=== PATIENT | female | born 2000 | race Caucasian/White ===

== ENCOUNTER 2021-11-30 22:21 | Inpatient (IN) | payer MEDICARE, MEDICAID, SELFPAY ==
--- NOTE | 2021-11-30 22:21 | LDADM ---
This patient, Che Davies, was admitted to Labor/Delivery/Recovery 107 on 11/30/21 at 22:21. Plans for labor, pain management and were discussed with patient. Patient/family oriented to hospital policies and general routines including ID bracelet, bed and alarms, visiting hours, pain management, procedures, bathroom and other care routines, personal items, smoking policy, room service/diet and guest tray routines, infant security routines, and visiting hours. Patient/Family are encouraged to report perceived risks to care and to ask questions if they do not understand what they are told or what they should do. See OBIX for further documentation.
--- OUTSIDE RECORDS SUMMARY | 2021-11-30 22:26 | XMS_ITS ---
:2000 Author Care Team Providers Name Role Phone Keeley Sheffield Primary Care Provider Unavailable Allergies Code Code System Name Reaction Severity Status Onset NKDA ? Medications Name Status Start Date Stop Date ? ? fluconazole 150 mg tablet Active ? Not av ailable hydrocortisone 2.5 % topical cream Active ? Not available ID NOW COVID-19 Test Kit Active ? Not belgica ilable nystatin 100,000 unit/gram topical Active ? Not available cream Completed ? 08/09/2021 triamcinolone acetonide 0.1 % topical Active ? Not available cream Problems Name Status Onset Date Source ? Active 08/18/2021 ? Procedures Date Name Performed by ? 08/18/2021 US, Obstetric, 2Nd or 3Rd Trimester [facility] [address] [place] [place] [address] (Work [address]) 09/12/2021 US, Obstetric, Follow-up [place] [address] [place] [address] (Work [address]) 11/25/2021 Non-stress Test [place] [address] [place] [address] (Work [address]) 11/25/2021 US, Obstetric, Biophysical Profile + [employer] carey
--- OUTSIDE RECORDS SUMMARY | 2021-11-30 22:27 | XMS_ITS | Encounter Summary ---
:2000 Author Reason for Visit None recorded. Assessment and Plan 1. screening ? US, obstetric, follow-up Discussion Note: None recorded.Patient educational handouts: No information available. Plan of Care Reminders Provider Appointments Induction Keeley T herese 12/01/2021 MD Yohannes 6:00PM Lab None ? ? recorded. Referral None ? ? recorded. Procedures None ? ? recorded. Surgeries None ? ? recorded. Imaging , [place] [facility], Follow-up 09/12/2021 Medications Name Start Date ? ? fluconazole 150 mg tablet ? hydrocortisone 2.5 % topical cream ? ID NOW COVID-19 Test Kit ? nystatin 100,000 unit/gram topical cream ? triamcinolone acetonide 0.1 % topical cream ? Medications Administered None recorded. Vitals None recorded. Results Lab Results None recorded. Allergies Code Code System Name Reaction Severity Onset NKDA ? ? ? Problems Name Status Onset Date Source ? Active 08/18/2021 ? Procedures Date Name Performed by ?
--- OUTSIDE RECORDS SUMMARY | 2021-11-30 22:27 | XMS_ITS | Encounter Summary ---
:2000 Author Reason for Visit OB visit Assessment and Plan Assessment Note Patient is ___weeks . Discu ssed plan. 1. Routine care Discussion Note: None recorded.Patient educational handouts: No information available. Plan of Care Reminders Provider Appointments Induction Keeley T herese 12/01/2021 MD Yohannes 6:00PM Lab None ? ? recorded. Referral None ? ? recorded. Procedures None ? ? recorded. Surgeries None ? ? recorded. Imaging None ? ? recorded. Medications Name Start Date ? ? fluconazole 150 mg tablet ? hydrocortisone 2.5 % topical cream ? ID NOW COVID-19 Test Kit ? nystatin 100,000 unit/gram topical cream ? triamcinolone acetonide 0.1 % topical cream ? Medications Administered None recorded. Vitals Height Weight BMI Blood Pressure 5 ft 4 in 198 lbs 34 kg/m2 121/74 mm[Hg] Results Lab Results None recorded. Allergies Code Code System Name Reaction Severity Onset NKDA ? ? ? Problems Name Status Onset Date Source ? Active
--- OUTSIDE RECORDS SUMMARY | 2021-11-30 22:27 | XMS_ITS | Encounter Summary ---
:2000 Author Reason for Visit OB visit Assessment and Plan 1. Routine care Discussion Note: None recorded.Patient educational handouts: No information available. Plan of Care Reminders Provider Appointments Induction Keeley Jocelyne here 12/01/2021 MD Yohannes 6:00PM Lab None ? [...] BMI Blood Pressure 5 ft 4 in 200 lbs 34.3 kg/m2 110/77 mm[Hg] Results Lab Results None recorded. Allergies Code Code System Name Reaction Severity Onset NKDA ? ? ? Problems Name Status Onset Date Source ? Active 08/18/2021 ? Procedures None recorded. Vaccine List None recorded. Social History Tobacco Smoking Status Ne
--- OUTSIDE RECORDS SUMMARY | 2021-11-30 22:27 | XMS_ITS | Encounter Summary ---
[...] BMI Blood Pressure 5 ft 4 in 183 lbs 31.4 kg/m2 114/72 mm[Hg] Results Lab Results None recorded. Allergies Code Code System Name Reaction Severity Onset NKDA ? ? ? Problems Name Status Onset Date Source ? Active 08/18/2021 ? Procedures Date Name Performed by ?
--- OUTSIDE RECORDS SUMMARY | 2021-11-30 22:27 | XMS_ITS | Encounter Summary ---
:2000 Author Reason for Visit None recorded. Assessment and Plan 1. Late entry into care ? US, obstetric, biophysical profile + non-stress test Discussion Note: None recorded.Patient educational handouts: No information available. Plan of Care Reminders Provider Appointments Induction Keeley T herese 12/01/2021 MD Yohannes 6:00PM Lab None recorded. ? ? Referral None recorded. ? ? Procedures None recorded. ? ? Surgeries None recorded. ? ? Imaging US, Obstetric, [facility] Biophysical Profile + 11/25/2021 Non-stress Test Medications Name Start Date ? ? fluconazole [...]
--- OUTSIDE RECORDS SUMMARY | 2021-11-30 22:27 | XMS_ITS | Encounter Summary ---
[...] BMI Blood Pressure 5 ft 4 in 192 lbs 33 kg/m2 115/72 mm[Hg] Results Lab Results None recorded. Allergies Code Code System Name Reaction Severity Onset NKDA ? ? ? Problems Name Status Onset Date Source ? Active 08/18/2021 ? Procedures Date Name Performed by ?
--- OUTSIDE RECORDS SUMMARY | 2021-11-30 22:27 | XMS_ITS | Encounter Summary ---
[...] BMI Blood Pressure 5 ft 4 in 187 lbs 32.1 kg/m2 120/79 mm[Hg] Results Lab Results None recorded. Allergies Code Code System Name Reaction Severity Onset NKDA ? ? ? Problems Name Status Onset Date Source ? Active 08/18/2021 ? Procedures Date Name Performed by ?
--- OUTSIDE RECORDS SUMMARY | 2021-11-30 22:27 | XMS_ITS | Encounter Summary ---
[...] BMI Blood Pressure 5 ft 4 in 193 lbs 33.1 kg/m2 118/77 mm[Hg] Results Lab Results None recorded. Allergies Code Code System Name Reaction Severity Onset NKDA ? ? ? Problems Name Status Onset Date Source ? Active
--- OUTSIDE RECORDS SUMMARY | 2021-11-30 22:27 | XMS_ITS | Encounter Summary ---
:2000 Author Reason for Visit None recorded. Assessment and Plan 1. Late entry into care ? non-stress test Discussion Note: None recorded.Patient educational handouts: No information available. Plan of Care Reminders Provider Appointments Induction Keeley Casanova here 12/01/2021 MD Yohannes 6:00PM Lab None ? ? recorded. Referral None ? ? recorded. Procedures None ? ? recorded. Surgeries None ? ? recorded. Imaging Non-stress [place] [facility] Test 11/29/2021 Medications Name Start Date ? ? fluconazole 150 mg tablet ? hydrocortisone 2.5 % topical cream ? ID NOW COVID-19 Test Kit ? nystatin 100,000 unit/gram topical cream ? triamcinolone acetonide 0.1 % topical cream ? Medications Administered None recorded. Vitals Weight Blood Pressure 202 lbs 113/77 mm[Hg] Results Lab Results None recorded. Allergies Code Code System Name Reaction Severity Onset NKDA ? ? ? Problems Name Status Onset Date Source ? Active 08/18/2021 ?
--- OUTSIDE RECORDS SUMMARY | 2021-11-30 22:27 | XMS_ITS | Encounter Summary ---
[...] BMI Blood Pressure 5 ft 4 in 199 lbs 34.2 kg/m2 121/81 mm[Hg] Results Lab Results None recorded. Allergies Code Code System Name Reaction Severity Onset NKDA ? ? ? Problems Name Status Onset Date Source ? Active
--- OUTSIDE RECORDS SUMMARY | 2021-11-30 22:27 | XMS_ITS | Encounter Summary ---
:2000 Author Reason for Visit None recorded. Assessment and Plan 1. with uncertain date s ? non-stress test Discussion Note: None recorded.Patient educational handouts: No information available. Plan of Care Reminders Provider Appointments Induction Keeley Casanova here 12/01/2021 MD Yohannes 6:00PM Lab None ? ? recorded. Referral None ? ? recorded. Procedures None ? ? recorded. Surgeries None ? ? recorded. Imaging Non-stress [facility] Test 11/25/2021 Medications Name Start Date ? ? fluconazole 150 mg tablet ? hydrocortisone 2.5 % topical cream ? ID NOW COVID-19 Test Kit ? nystatin 100,000 unit/gram topical cream ? triamcinolone acetonide 0.1 % topical cream ? Medications Administered None recorded. Vitals Weight Blood Pressure 200 lbs 130/82 mm[Hg] Results Lab Results None recorded. Allergies Code Code System Name Reaction Severity Onset NKDA ? ? ? Problems Name Status Onset Date Source ? Active 08/18/2021 ?
[2021-11-30 22:56] VITALS: TEMP 36.9
[2021-11-30 23:19] VITALS: BMI 34.8
--- NOTE | 2021-11-30 23:38 | WPDOBADMIT ---
Obstetrics - Admit Note Admission Note: record reviewed. No pertinent additions to the history and/or any subsequent changes in the physical findings that are not consistent with the expected course of the were found. Patient arrived in labor. , membranes intact. Anticipate vaginal delivery. Additions to the history and/or subsequent changes in the physical findings follow. None.
[2021-11-30] MEDS: LACTATED RINGERS 1,000 ML 125 ML IV CONT (23:44)
[2021-11-30 23:46] LABS: Basophils Percent Auto 0.2 % (0.2-1.2); Eosinophils Absolute Auto 0.1 K/mm3 (0-0.3); Eosinophils Percent Auto 0.5 % (0-4.4); Hematocrit 31.2 % (37.0-47.0); Hemoglobin 10.4 g/dL (12.0-15.0); Immature Granulocyte Absolute 0.06 K/mm3 (0.00-0.031); Immature Granulocyte Percent A 0.5 % (0-0.5); Lymphocytes Absolute Auto 2.24 K/mm3 (0.9-3.2); Lymphocytes Percent Auto 17.3 % (18.3-44.2); Mean Corpuscular HGB Conc 33.3 g/dl (32-36); Mean Corpuscular Hemoglobin 30.6 pg (26-34); Mean Corpuscular Volume 91.8 fl (80-100); Mean Platelet Volume 9.5 fl (7.4-10.4); Monocytes Absolute Auto 1.1 K/mm3 (0.1-0.6); Monocytes Percent Auto 8.4 % (2.6-8.5); Neutrophils Absolute Auto 9.4 K/mm3 (1.3-6.7); Neutrophils Percent Auto 73.1 % (45.5-73.1); Platelet Count Result 335 k/mm3 (150-375); Red Cell Distribution Width 13.8 % (11.5-14.5); White Blood Count 12.9 K/mm3 (4.5-10.0)
[2021-11-30 23:51] VITALS: BP 144/80; PULSE 97
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
[2021-12-01] VITALS (96 sets, daily range): BP systolic 83–156; BP diastolic 45–93; PULSE 64–115; RESP 16–20; TEMP 36.3–37.3; O2SAT 90–100
--- NOTE | 2021-12-01 00:05 | PC.NURSE ---
Eber Alexis CNM in department. Updated on maternal assessment. strip reviewed. Order change to perform vitals only when patient is awake overnight and then continue with Q4H in AM.
[2021-12-01] MEDS: ONDANSETRON INJ 4 MG/2 ML VIAL IV PUSH (00:24)
[2021-12-01] MEDS: LACTATED RINGERS 1,000 ML 125 ML IV CONT (00:26)
--- NOTE | 2021-12-01 00:27 | P.PNAN_ITS ---
Anes - Eval Pre Procedure Procedure: labor epidural Date/Time: 12/01/21 00:27 Surgeon: azeb Preop Diagnosis: pain during labor Pre Op Diagnosis: Contractions Patient Data Age: 21 Gender: F Height: 1.63 m Weight: 92 kg Last Vital Signs Pulse 94 12/01/21 00:15 BP 124/71 12/01/21 00:15 Allergies Allergy/AdvReac Type Severity Reaction Status Date / Time No Known Allergies Allergy Verified 11/30/21 23:41 Home Medications Medication Instructions Recorded Confirmed Type No Home Medications 10/29/21 11/30/21 History Laboratory Tests 11/30/21 11/30/21 23:15 23:15 WBC 12.9 K/mm3 H K/mm3 (4.5-10.0) RBC 3.40 M/mm3 L M/mm3 (4.2-5.4) Hgb 10.4 g/dL L g/dL (12.0-15.0) Hct 31.2 % L % (37.0-47.0) MCV 91.8 fl fl (80-100) MCH 30.6 pg pg (26-34) MCHC 33.3 g/dl g/dl (32-36) RDW 13.8 % % (11.5-14.5) Plt Count 335 k/mm3 k/mm3 (150-375) MPV 9.5 fl fl (7.4-10.4) Immature Gran % (Auto) 0.5 % % (0-0.5) Neut % (Auto) 73.1 % % (45.5-73.1) Lymph % (Auto) 17.3 % L % (18.3-44.2) [place] % (Auto) 8.4 % % (2.6-8.5) Eos % (Auto) 0.5 % % (0-4.4) Baso % (Auto) 0.2 % % (0.2-1.2) Lymph # (Auto) 2.24 K/mm3 K/mm3 (0.9-3.2) [place] # (Auto) 1.1 K/mm3 H K/mm3 (0.1-0.6) Eos # (Auto) 0.1 K/mm3 K/mm3 (0-0.3) Baso # (Auto) 0.0 K/mm3 K/mm3 (0.0-0.1) Abs Immat Gran (auto) 0.06 K/mm3 H K/mm3 (0.00-0.031) Absolute Neuts (auto) 9.4 K/mm3 H K/mm3 (1.3-6.7) Absolute Nucleated RBC 0.0 K/mm3 K/mm3 (0.0-0.012) Nucleated RBC % 0.0 % % (0.0-0.2) RPR Pending Patient hx anesthesia problems: none Family hx anesthesia problems: none Results Review: All pre-operative results and documents have been reviewed as part of the pre-operative evaluation. [facility] Past Medical History Medical History (Updated 12/01/21 @ 00:28 by Berenice Coppola CRNA) Obesity (BMI 30-39.9) Family History Family History (Updated 10/29/21 @ 11:55 by Mia Acuna RN) Other Breast cancer Social History Social History Smoking status: Former smoker Substance use: never Gender identity (if verbalized by the patient): Female Spiritual care concerns: No Exam Day of Procedure 12/01/21 00:27
[2021-12-01 03:10] LABS: Alanine Aminotransferase 16 U/L (4-35); Albumin Level 3.1 g/dL (3.5-5.1); Alkaline Phosphatase 205 U/L (38-126); Anion Gap 7 mmol/L (8-16); Aspartate Amino Transferase 23 U/L (14-36); Bilirubin,Total < 0.1 mg/dL (0.2-1.3); Blood Urea Nitrogen 6 mg/dL (7-17); Calcium 8.4 mg/dL (8.4-10.2); Carbon Dioxide 23 mmol/L (22-30); Chloride 106 mmol/L (98-107); Estimated CRCL calculation 160 ml/min; Estimated Glomerular Filt Rate > 60; Glucose 113 mg/dL (65-110); Potassium 3.8 mmol/L (3.4-5.0); Sodium 136 mmol/L (137-145); Uric Acid 4.2 mg/dL (2.5-7.5)
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
--- NOTE | 2021-12-01 08:03 | PM.OBPRVD ---
OB - Delivery Note Procedure Delivery date: 12/01/21 Procedure: Vaginal delivery Induction method: None Delivery augmentation: Rupture of Membranes and Pitocin Delivery monitor: External FHT and External Uterine Route of delivery: Laceration Description: Labial (right) Delivery repair: other (No suture needed) Specimen: Yes Quantitative Blood Loss (ml): 150 Anesthesia type: Epidural Disposition: Floor [place] Baby Date of : 12/01/21 Time of : 07:49 Weeks of gestation at delivery: 41 Infant gender: Female Weight (pounds): 7 Weight (ounces): 10 presentation: vertex position: Left Occiput Anterior Placenta delivery description: Spontaneous Cord Vessel Description: 3 Vessels score one minute: 8 score five minutes: 9 Narrative: Mom and baby stable. baby to warmer
[2021-12-01] MEDS: IBUPROFEN 600 MG TABLET PO ×3 (09:46→22:35)
[2021-12-01] MEDS: BENZOCAINE 20% AER SPR (*SP) 56 GM CAN 1 SPRAY TOPICAL (10:32)
[2021-12-01] MEDS: WITCH HAZEL 40 PADS 1 PAD TOPICAL (10:32)
--- NOTE | 2021-12-01 11:00 | PC.NURSE ---
Patient transferred to post room #284 via wheelchair. Baby present. Oriented to unit, room, information board, rooming in, admission packet and security measures. Patient verbalizes understanding. Pt states she does not have any family or support here with her, she does have a tree specialist that helped with labor and delivery and she will be here later
--- NOTE | 2021-12-01 13:59 | PC.NURSE ---
Primary RN reported that she assisted mother () with infant to the breast at 1100 and baby latched well and mother did not complain of pain.
[2021-12-01 14:54] LABS: Rapid Plasma Reagin Non-Reactive (NonReactive)
--- NOTE | 2021-12-01 15:38 | PC.NURSE ---
[id number] Introductions were made, then consulted with patient to assess needs related to . Mother led the conversation with her experience feeding her so far. Mother works well with her with encouragement and education. Encouraged understanding of the benefits of skin to skin (unwrapping and placing vertically on her chest), responsive feeding and how to watch for early feeding signs, frequency of feeding on demand about every 8-12 times in 24 hours (every 2-3 hours), milk production, duration of feeding, signs of adequate intake/output and how to record on the feeding sheet. Reviewed positioning and ear, shoulder, hip alignment, supporting the breast, asymmetrical latch (off-center), and leading with the chin with a big open side gape. Infant latched optimally to the right breast in football position. Education given to mother of how to visualize suck/swallow ratios and drinking at the breast. was [able/unable] to maintain latch without discomfort to mother. Nipple care reviewed with optimal latch and good positioning. Reminding mother of comfort measures of healing with a warm and wet washcloth to rinse breast, then leave open to air-dry as needed. Reviewed good handwashing when or touching the breast/nipples to prevent infection. Resources used to facilitate learning were used with the visual handouts/mom and baby guide. Reinforcement needed for education on mother working with her with responsive feedings, stimulating with skin to skin, hand expressed colostrum, touch, talking to infant to encourage if it has been 2 -3 hours since the start of the last , to call if does not latch or there is discomfort with . Reported to the primary RN.
--- NOTE | 2021-12-01 19:00 | PC.NURSE ---
Stated, Can you get my permission for visitors before allowing anyone to come in my room. I did not know he was coming to see me. Gentleman present at bedside. Explained I would have security notify the nurses station first before allowing visitors to come up. Security notified. Sign placed on door to check with nurses station before entering.
[2021-12-01] MEDS: ACETAMINOPHEN 325 MG TABLET 650 MG PO (22:35)
[2021-12-02 03:20] VITALS: BP 98/56; PULSE 77; RESP 18; TEMP 36.6
[2021-12-02 04:18] LABS: Hematocrit 26.5 % (37.0-47.0); Hemoglobin 8.5 g/dL (12.0-15.0)
--- NOTE | 2021-12-02 07:39 | PM.OBPNVD ---
OB - PN: Subj Subjective Date/time seen: 12/02/21 07:39 RN concerned patient not picking up on personal and infant needs. family services assistant notified. Patient comments: no complaints [place] baby status: doing well OB - PN: Obj Data Labs CBC & Chem 7: 12/02/21 03:26 12/01/21 02:29 Labs: Laboratory Results - last 24 hr 11/30/21 12/02/21 23:15 03:26 Hgb 8.5 L Hct 26.5 L RPR Non-reactive OB - PN A/P Plan day: 1 Plan: routine care Time Spent With Patient Time: Total time spent is greater than 50% in coordination of care (as documented) at patient's floor/unit and/or counseling patient: Review of Systems Review of Systems: All systems reviewed & are unremarkable except as noted in HPI and below Exam Const: General: healthy appearing, comfortable and other (Delayed response)
[2021-12-02 08:20] VITALS: BP 110/67; PULSE 88; RESP 18; TEMP 36.1; O2SAT 98
[2021-12-02] MEDS: DOCUSATE SODIUM 100 MG CAPSULE PO ×2 (08:27→15:33)
[2021-12-02] MEDS: IBUPROFEN 600 MG TABLET PO ×2 (08:27→15:32)
[2021-12-02] MEDS: POLYSACCHARIDE IRON COMPLEX 150 MG CAPSULE PO ×2 (08:27→15:33)
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
--- NOTE | 2021-12-02 12:05 | PC.NURSE ---
DCFS case managers, Chris Arita, here to talk with patient.
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
--- NOTE | 2021-12-02 14:47 | WPDANLDPN2 ---
Anes-Prog Note L&D Date/Time: 12/02/21 14:47 Comfortable throughout: labor and delivery Neuraxial method: epidural Epidural/Spinal procedure site: clean & non-tender Neuro status: Neuro function grossly intact. Cardiovascular status: normal Respiratory status: normal Airway patency: baseline Mental status: baseline Post-Op hydration status: normal Vital Signs: Last Vital Signs Temp 36.1 C L 12/02/21 08:20 Pulse 88 12/02/21 08:20 Resp 18 12/02/21 08:20 BP 110/67 12/02/21 08:20 Pulse Ox 98 12/02/21 08:20 Pain score (VAS): 0 I/O: Intake & Output 12/01/21 12/02/21 12/02/21 23:59 07:59 15:59 Intake Total 240 500 Balance 240 500 Post-procedural complaints: none Patient feedback: Patient satisfied with anesthetic care.
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
[2021-12-02 19:00] VITALS: BP 120/76; PULSE 84; RESP 18; TEMP 36.8
[2021-12-03] MEDS: ACETAMINOPHEN 325 MG TABLET 650 MG PO (04:40)
[2021-12-03] MEDS: IBUPROFEN 600 MG TABLET PO (04:40)
--- NOTE | 2021-12-03 07:47 | PM.OBPNVD ---
OB - PN: Subj Subjective Date/time seen: 12/03/21 07:47 Patient comments: no complaints and pain well controlled baby status: doing well [place] feeding status: breast and bottle feeding Narrative: Pt is upset that she may not take baby home with her. Support given. Medically she is feeling fine. OB - PN: Obj Data Labs CBC & Chem 7: 12/02/21 03:26 12/01/21 02:29 OB - PN A/P Plan day: 2 Plan: routine care and discharge home Comments: high risk for pp depression- FU 1-2 weeks DC instructions given Time Spent With Patient Time: Total time spent is greater than 50% in coordination of care (as documented) at patient's floor/unit and/or counseling patient: Time with patient: less than 15 minutes Exam Narrative: NAD abdomen soft, nontender, fundus firm below the umbilicus Extremities nontender, 1+ edema
--- NOTE | 2021-12-03 07:51 | PM.OBDSVD ---
DS: Admitting Diagnosis Discharge Date 12/03/21 Admitting Diagnosis term IUP, labor DS: Discharge Diagnosis Discharge Diagnosis (1) , delivered: Code(s): O80 - Encounter for full-term uncomplicated delivery Status: Acute (2) Schizophrenia: Code(s): F20.9 - Schizophrenia, unspecified Status: Acute OB - DS: Summary Hospital Course Hospital Course: Che was admitted in labor and had an uncomplicated vaginal delivery. She had an uncomplicated course with the exception of DCFS determining that she could not care for her baby. OB Procedures : Ultrasound OB Procedures Intrapartum: Spontaneous Vag Delivery OB Procedures: : None Peripartum Data Infant Delivery Method: Natural Vaginal complications: none Status at Discharge Functional status at discharge: independent ambulation Time Spent with Patient Time attestation: Total time spent providing and/or coordinating discharge services: Exam Narrative: NAD abdomen soft, appropriately tender Ext non tender, 1+ edema DS: Data Data Completed and Pending Pending studies at discharge: Pending at discharge 12/01/21 07:52 Surgical [PTH] Routine Discharge Plan Discharge Attending physician on discharge: Keeley Sheffield Discharging Clinician: Keeley Sheffield Anticipated Discharge Date/Time: 12/03/21 16:00 Patient Disposition: Home, Self-Care Activity: pelvic rest Diet: regular Discharge Instructions: ibuprofen 600mg every 6 hours as needed over the counter Slow Fe daily Patient Instructions: Antibiotic Form Stand Alone Forms: General Discharge Information Follow-up/Referrals: Keeley Sheffield MD [Physician] - 2 Weeks Discharge Medications: No Action No Home Medications RF: 0 Date of admission: 11/30/21 22:21 Primary Care Provider: PHYSICIAN,WIRELESS NETWORK ENGINEER Admitting Provider: Keeley Sheffield Attending physician on admission: Keeley Sheffield Condition: Stable
[2021-12-03 08:19] VITALS: BP 113/74; PULSE 74; RESP 16; TEMP 36.3; O2SAT 98
[2021-12-03] MEDS: POLYSACCHARIDE IRON COMPLEX 150 MG CAPSULE PO (08:20)
[2021-12-03] MEDS: DOCUSATE SODIUM 100 MG CAPSULE PO (08:21)
--- NOTE | 2021-12-03 14:00 | PC.NURSE ---
Patient received information on viewing the discharge video Mother & Baby Care, The First Two Weeks online. Patient was given the opportunity and encouraged to ask questions. Patient verbalized understanding of information shared and has been given the mother/baby guide for home reference.
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
== END 2021-12-03 15:10 | disposition home or self-care (01) | DRG 807 ==
LOC: ANHLDR 22:32 → ANHOB2 12-01 12:19
PROVIDERS: Advanced Practice Midwife; Admitting Provider Obstetrics & Gynecology; Visit Provider Obstetrics & Gynecology
DX: O77.0 Labor and delivery complicated by meconium in amniotic fluid (principal); Z37.0 Single live birth; Z3A.41 41 weeks gestation of pregnancy; O36.8330 Maternal care for abnormalities of the fetal heart rate or rhythm, third trimester, not applicable or unspecified; O99.344 Other mental disorders complicating childbirth; F20.9 Schizophrenia, unspecified; O70.0 First degree perineal laceration during delivery
CPT/HCPCS: 36415; 80053; 84550; 85014; 85018; 85025; 86592; 86850; 86900; 86901; 88307; A9270; J2405; J2795; J7120

== ENCOUNTER 2024-12-31 10:45 | Outpatient (CLI) | payer MEDICARE, MEDICAID, SELFPAY ==
--- NOTE | ~2024-12-31 | US_ITS ---
Renal-Bladder ultrasound Clinical History: Chronic kidney disease Technique: Real-time sonographic imaging of the kidneys and urinary bladder was performed. Findings: The right kidney measures 11.3 cm in length and the left kidney measures 12.2 cm. There is no hydronephrosis or renal calculus identified. Renal cortical echogenicity is within normal limits. No renal mass lesion is identified. The urinary bladder is moderately distended at the time of this exam. No intraluminal echoes are iden tified. No abnormal wall thickening is seen. Impression: Unremarkable ultrasound of the kidneys and urinary bladder. Reviewed, dictated and finalized at location . Impression: Unremarkable ultrasound of the kidneys and urinary bladder.
== END 2024-12-31 10:46 | disposition home or self-care (01) ==
LOC: MICIMG 10:47
PROVIDERS: PCP Internal Medicine; Visit Provider Specialist
DX: N18.30 Chronic kidney disease, stage 3 unspecified (principal)
CPT/HCPCS: 76775

== ENCOUNTER 2025-06-10 09:52 | Emergency (ER) | payer MEDICARE, MEDICAID, SELFPAY ==
--- OUTSIDE RECORDS SUMMARY | 2024-12-19 09:00 | XMS_ITS ---
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 Problem Elevation of levels of liver transaminase levels (R74.01) Active confirmed Problem Psychotic disorder (46927473) 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) Active confirmed Problem Obesity (752755821) Obesity, unspecified (E66.9) Active confirmed Encounters Encounter Location Date Provider Diagnosis [place] [facility] [address] [facility] [address] [place] [address] 12/19/2024 Hill Singh Chronic kidney disease, stage 1 N18.1 ; Atrophy of kidney (terminal) N26.1 ; Elevation of levels of liver transaminase levels R74.01 ; Unspecified psychosis not due to a substance or known physiological condition F29 and Obesity, unspecified E66.9 Assessments Encounter Date Diagnosis (ICD Code) Assessment Notes Treatment Notes Treatment Clinical Notes Section Notes 12/19/2024 Chronic kidney disease, stage 1 (ICD-10 - N18.1) 12/19/2024 Atrophy of kidney (terminal) (ICD-10 - N26.1) 12/19/2024 Elevation of levels of liver transaminase levels (ICD-10 - R74.01) 12/19/2024 Unspecified psychosis not due to a substance or known physiological condition (ICD-10 - F29) 12/19/2024 Obesity, unspecified (ICD-10 - E66.9) Plan Of Treatment Next Appt Details Provider Name:Hill Francisco , 06/17/2025 04:00:00 PM, [address] [facility] [address], [place], [address], Progress Notes * Nicanor DAVIESOB:2000 ([age] yo F)Acc No.[id number]:12/19/2024 Progress Notes Patient: Che SPAIN Provider: Scooby GALLAGHER MD, F.A.C.P, F.A.S.N. :2000 A ge:24 Y S ex:Female Date:12/19/2024 Address:[address] [place] [address] Subjective: * Chief Complaints: * * Medical History: Objective: * Vitals: Assessment: * Assessment: 1. C hronic kidney disease, stage 1 - N18.1 (Primary) 2 . A trophy of kidney (terminal) - N26.1 3 . E levation of levels of liver transaminase levels - R74.01 4 . U nspecified psychosis not due to a substance or known physiological condition - F29 5 . O besity, unspecified - E66.9 Plan: * Treatment: * Billing Information: * Visit Code: 76952 Office Visit, New Pt., Level 5. * Procedure Codes: * Electronic signature of Judith Singh MD on 06/10/2025 at 10:51 AM CLINICAL RESEARCH ADMINISTRATOR Sign off status: Pending * Provider: Scooby GALLAGHER MD, F.A.C.P, F.A.S.N. Date: 0 12/19/2024 Generated for Printing/Faxing/eTransmitting on: 1 08/10/2024 10:51 AM CLINICAL RESEARCH ADMINISTRATOR
--- OUTSIDE RECORDS SUMMARY | 2025-01-07 09:30 | XMS_ITS ---
Author Organization [facility] Office Address [address] [facility] [address] [facility] [address] [place] [address] Care Team Providers Care Bulk Driver Name Role Phone Hill Singh Unavailable [phone] Problems Problem Type SNOMED Code ICD Code Onset Dates Problem Status W/U Status Risk Notes Problem Fatty liver (300187501) Fatty (change of) liver, not elsewhere classified (K76.0) Active confirmed Encounters Encounter Location Date Provider Diagnosis [place] [facility] [address] [facility] [address] [place] [address] 01/07/2025 Hill Singh Chronic kidney disease, stage 1 N18.1 ; Atrophy of kidney (terminal) N26.1 ; Elevation of levels of liver transaminase levels R74.01 ; Unspecified psychosis not due to a substance or known physiological condition F29 ; Obesity, unspecified E66.9 ; Fatty (change of) liver, not elsewhere classified K76.0 and Edema, unspecified R60.9 Assessments Encounter Date Diagnosis (ICD Code) Assessment Notes Treatment Notes Treatment Clinical Notes Section Notes 01/07/2025 Chronic kidney disease, stage 1 (ICD-10 - N18.1) 01/07/2025 Atrophy of kidney (terminal) (ICD-10 - N26.1) 01/07/2025 Elevation of levels of liver transaminase levels (ICD-10 - R74.01) 01/07/2025 Unspecified psychosis not due to a substance or known physiological condition (ICD-10 - F29) 01/07/2025 Obesity, unspecified (ICD-10 - E66.9) 01/07/2025 Fatty (change of) liver, not elsewhere classified (ICD-10 - K76.0) 01/07/2025 Edema, unspecified (ICD-10 - R60.9) Plan Of Treatment Next Appt Details Provider Name:Hill Singh , 06/17/2025 04:00:00 PM, [address] [facility], [facility] [address], [place], [address], Progress Notes * Nicanor DAVIESOB:2000 ([age] yo F)Acc No.[id number]:01/07/2025 Progress Notes Patient: Che SPAIN Provider: Scooby GALLAGHER MD, F.Iraj.Bradnon.P, F.A.S.N. :2000 A ge:24 Y S ex:Female Date:01/07/2025 Address:[address] [place] [address], [place] [address] Subjective: * Chief Complaints: * * Medical [...] 5 . O besity, unspecified - E66.9 6 . F atty (change of) liver, not elsewhere classified - K76.0 7 . E irma, unspecified - R60.9 Plan: * Treatment: * Billing Information: * Visit Code: 97617 Office Visit, Est Pt., Level 4. * Procedure Codes: * Electronic signature of Judith Singh MD on 06/10/2025 at 10:51 AM REPLANTING MACHINE OPERATOR Sign off status: Pending * Provider: Scooby GALLAGHER MD, Mary Ellen.Iraj.C.P, F.A.S.N. Date: 0 01/07/2025 Generated for Printing/Faxing/eTransmitting on: 08/10/2024 10:51 AM REPLANTING MACHINE OPERATOR
--- OUTSIDE RECORDS SUMMARY | 2025-03-18 10:00 | XMS_ITS ---
Author Organization [facility] Office Address [address] [facility] [address] [facility] [address] [place] [address] Care Team Providers Care Baby Formula Worker Name Role Phone FranciscoMarco AntonioHill Unavailable [phone] Encounters Encounter Location Date Provider Diagnosis [place] [facility] [address] [facility] [address] [place] [address] 03/18/2025 Hill Singh Chronic kidney disease, stage 1 N18.1 ; Atrophy of kidney (terminal) N26.1 ; Elevation of levels of liver transaminase levels R74.01 ; Unspecified psychosis not due to a substance or known physiological condition F29 ; Obesity, unspecified E66.9 and Fatty (change of) liver, not elsewhere classified K76.0 Assessments Encounter Date Diagnosis (ICD Code) Assessment Notes Treatment Notes Treatment Clinical Notes Section Notes 03/18/2025 Chronic kidney disease, stage 1 (ICD-10 - N18.1) 03/18/2025 Atrophy of kidney (terminal) (ICD-10 - N26.1) 03/18/2025 Elevation of levels of liver transaminase levels (ICD-10 - R74.01) 03/18/2025 Unspecified psychosis not due to a substance or known physiological condition (ICD-10 - F29) 03/18/2025 Obesity, unspecified (ICD-10 - E66.9) 03/18/2025 Fatty (change of) liver, not elsewhere classified (ICD-10 - K76.0) Plan Of Treatment Next Appt Details Provider Name:Hill Singh , 06/17/2025 04:00:00 PM, [address] [facility], [facility] [address], [place], [address], Progress Notes * Nicanor DAVIESOB:2000 ([age] yo F)Acc No.[id number]:03/18/2025 Progress Notes Patient: Che SPAIN Provider: Scooby GALLAGHER MD, F.Iraj.C.P, F.A.S.N. :2000 A ge:24 Y S ex:Female Date:03/18/2025 Address:[address] [place] [address] Subjective: * Chief Complaints: Objective: Assessment: * Assessment: 1. C hronic kidney [...] of) liver, not elsewhere classified - K76.0 Plan: * Billing Information: * Visit Code: 45083 Office Visit, Est Pt., Level 4. * Procedure Codes: * Electronic signature of Judith Singh MD on 06/10/2025 at 10:52 AM GALLEY STRIPPER Sign off status: Pending * Provider: Scooby GALLAGHER MD, F.Iraj.C.P, F.A.S.N. Date: 0 03/18/2025 Generated for Printing/Faxing/eTransmitting on: 1 08/10/2024 10:52 AM GALLEY STRIPPER
[2025-06-10 10:03] VITALS: BP 148/84; PULSE 95; RESP 18; TEMP 36.8; O2SAT 99
--- OUTSIDE RECORDS SUMMARY | 2025-06-10 10:51 | XMS_ITS | Clinical Summary ---
Author Organization [facility] Address [address] [place] [address] Care Team Providers Care Wax Pumper Name Role Phone Hill Singh MD Unavailable [phone] Christian Sexton MD Unavailable [phone] Rahel Ashby MD Primary Care Provide r Allergies No known active allergies Medications ARIPiprazole (ABILIFY MAINTENA) 300 mg IM injection Inject 300 mg into the muscle as instructed once Active FLUoxetine (PROzac) 20 mg capsule Take 1 capsule (20 mg total) by mouth every morning 08/11/19 25 Active hydrOXYzine (VISTARIL) 25 mg capsule Take 1 capsule (25 mg total) by mouth 2 (two) times a day as needed 09/05/19 25 Active Rybelsus 3 mg tablet TAKE 1 TABLET BY MOUTH DAILY ON AN EMPTY STOMACH WITH UP TO 4 OZ OF WATER 30 MINUTES PRIOR TO EATING. DO NOT TAKE WITH OTHER LIQUIDS Active lurasidone (LATUDA) 40 mg tablet Active ergocalciferol (VITAMIN D) 50,000 unit capsule Active calcitRIOL (ROCALTROL) 0.25 mcg capsule Active delmi ypwbqo-Fg-ddqI rangpeel-tea (Apple Cider Vinegar Plus) [phone] zw-uyf-fd-mg tablet Take by oral route. Active multivitamin-C c-qoew-qyhsapd s tablet Take by oral route. Active medroxyPROGEST ERone (PROVERA) 10 mg tabletIndicati ons:Abnormal Uterine Bleeding,bleed ing on depo provera Take 1 tablet (10 mg total) by mouth daily for 10 days 10 tablet 02/06/20 25 Active phenazopyridin e (PYRIDIUM) 200 mg tablet Take 1 tablet (200 mg total) by mouth 3 (three) times a day as needed for bladder spasms for up to 5 days 10 tablet 05/25/20 25 025 Discontinued phenazopyridin e (PYRIDIUM) 200 mg tablet Take 1 tablet (200 mg total) by mouth 3 (three) times a day as needed for bladder spasms for up to 5 days 10 tablet 05/25/20 25 025 Active Problems Problem Noted Date Diagnosed Date Bladder spasm 05/25/2025 Menstrual migraine 11/03/2024 Overview (11/03/2024): Denies aura. 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 She was found in the hospital hallway in the nude seeing her baby was trying to kill her. Smoker 03/17/2024 BMI 32.0-32.9,adult 03/17/2024 Encounters Date Type Department Care Team Description 05/25/2025 2:00 PM CDT Office Visit [facility] at [address] Medical Office Building [address] [place] [phone] Dana Reyes MD Bladder spasm (Primary Dx); Secondary amenorrhea 04/23/2025 Orders Only [facility] at [address], [address] [facility] Medical Office Building [address] [place] [id number] Dana Reyes MD 04/21/2025 4:06 PM CDT - 04/21/2025 11:59 PM CDT Hospital Encounter [address] [address] UTI symptoms Discharge Disposition: Discharge to home or self care 04/21/2025 10:00 AM CDT Clinical Support [facility] at [address], [address] Medical Office Building [address] [place] [address] UTI symptoms (Primary Dx) 04/09/2025 10:00 AM CDT Clinical Support [facility] at [address], [address] Medical Office Building [address] [place] [address] Surveillance for Depo-Provera contraception (Primary Dx) 03/31/2025 11:12 AM CDT - 03/31/2025 11:59 PM CDT Hospital Encounter [address] [address] Screening for STD (sexually transmitted disease); Vaginal irritation Discharge Disposition: Discharge to home or self care 03/31/2025 10:45 AM CDT Clinical Support [facility] at [address], [address] Medical Office Building [address] [place] [address] UTI symptoms (Primary Dx); Vaginal irritation; Screening for STD (sexually transmitted disease) 03/31/2025 Orders Only [facility] at [address], [address] Medical Office Building [address] [place] [address] Dana Reyes MD UTI symptoms (Primary Dx) 03/31/2025 Telephone [facility] at [address], [address] Medical Office Building [address] [place] [address] Dana Reyes MD from Last 3 Months Medical History Medical History Date Comments Depression Family History Medical History Relation Name Comments Schizophrenia Cousin OCD Mother Scoliosis Mother Schizophrenia Mother's Sister Relation Name Status Comments Cousin Alive Mother Mother's Sister Alive Social History Tobacco Use Types Packs/Day Years Used Date Smoking Tobacco: Some Days Cigarettes AUDIT-C Answer Date Recorded Q1: How often do you have a drink containing alc ohol? Monthly or less 05/02/2024 Q2: How many drinks containi ng alcohol do you have on a typical day when you are drinking? 1 or 2 05/02/2024 Q3: How often do you have si x or more drinks on one occasion? Never 05/02/2024 Comments No Sex and Gender Information Value Date Recorded Sex Assigned at Not on file Legal Sex Female 9:38 AM [employer] Gender Identity Not on file Sexual Orientation Not on file Obstetrics History Para Term AB IAB SAB Ectopic Multiple Livin g Live Births 1 1 1 1 1 Date Outcome GA Total Labor Labor/2nd/3rd Weight Sex Type Anes PTL Bebe A1 A5 Name Clin 2021 Term 40w0d F Vag-Sp ont Last Filed Vital Signs Vital Sign Reading Time Taken Comments Blood Pressure 122/90 05/25/2025 1:55 PM CDT Pulse - - Temperature - - Respiratory Rate 20 11/03/2024 3:04 PM CDT Oxygen Saturation - - Inhaled Oxygen Concentration - - Weight 98.5 kg (217 lb 3.2 oz) 05/25/2025 1:55 P M CDT Height 162.6 cm (5' 4.02) 11/03/2024 3:04 PM CD T Body Mass Index 37.26 11/03/2024 3:04 PM CDT Plan of Treatment Health Maintenance Due Date Last Done Comments Depression Screening 2000 Pneumococcal vaccine <65 (1 of 2 - PCV) 2017 Influenza Vaccine (#1) 2025 , 05/29/2023, 05/19/2022 HPV Vaccines (1 - 3-dose SCD M series) 2025 Cervical Cancer Screening 11/03/2025 11/03/2024 Regular Well Visit/Exam 18-64 11/03/2025 11/03/2024 DTaP/Tdap/Td Vaccine (9 - Td or Tdap) 05/19/2032 05/19/2022, 09/28/2021, 04/05/2010, Additional history exists Hepatitis B Screening Completed 02/10/1999 , 2000, 1998 Varicella Vaccines Completed 04/05/2010, 08/29/1999 Hepatitis C Screening Completed 11/03/2024, 024 Procedures Procedure Name Priority Date/Time Associated Diagnosis Comments POCT HCG, URINE Routine 05/26/2025 8:00 AM CDT Secondary amenorrhea POCT URINALYSIS DIPSTICK Routine 05/25/2025 2:30 PM CDT Bladder spasm URINE CULTURE Routine 04/21/2025 4:06 PM CDT UTI symptoms POCT URINALYSIS DIPSTICK Routine 04/21/2025 11:03 AM CDT UTI symptoms POCT URINALYSIS DIPSTICK Routine 03/31/2025 10:52 AM CDT UTI symptoms N. GONORRHOEAE/C. TRACHOMATIS AMPLIFICATION Routine 03/31/2025 8:00 AM CDT Vaginal irritation TRICHOMONAS VAGINALIS PCR Routine 03/31/2025 8:00 AM CDT Screening for STD (sexually transmitted disease) HEPATITIS C ANTIBODY Routine 11/03/2024 4:06 PM CDT Encounter for screening for infections with predominantly sexual mode of transmission PAP ONLY Routine 11/03/2024 8:52 AM CDT Well woman exam with routine gynecological exam from Last 3 Months or Most Recently Relevant to Health Maintenance Results * POCT hCG, urine (05/26/2025 8:00 AM CDT) HCG, ur, POC Negative Negative Lot Number [id number] QC Backgroud Clear Acceptable QC Control Line Acceptable Urine 05/26/2025 8:00 AM CDT Dana Reyes MD POINT OF CARE TEST ORDERAB LES Final Result * (ABNORMAL) POCT urinalysis dipstick (05/25/2025 2:30 PM CDT) Color, Urine, POC Light Yellow Clarity, ur, POC Cloudy(A) Clear Glucose, ur, POC Negative Negative Bilirubin, ur, POC Negative Negative Ketones, ur, POC Negative Negative Specific Fox, POC 1.020 1.003 - 1.030 Blood, ur, POC Negative Negative pH, ur, POC 7.0 5.0 - 8.0 Protein, ur, POC Negative Negative Urobilinogen, urine, POC 0.2 0.2 - 1.0 mg/dL Nitrite, ur, POC Negative Negative Leukocytes, ur, POC Negative Negative Lot Number [id number] Urine 05/25/2025 2:30 PM CDT us Dana Reyes MD POINT OF CARE TEST ORDERAB LES Final Result * (ABNORMAL) Urine culture Urine, clean voided (04/21/2025 4:06 PM CDT) Report Final Report: Less than 100,000 colonies/mL (clinically insignificant growth based on current clinical standards) Includes the following: Less than 100,000 colonies/mL Streptococcus agalactiae (Group B Streptococci) * * * * * * * * * * * * * * * * * * * * Resistance to penicillin in Group B Streptococcus has not been reported. Group B Streptococci are universally susceptible to beta-lactam antibiotics and vancomycin. Routine susceptibility testing is not performed. In penicillin allergic patients, please contact the laboratory at [phone] to request susceptibility testing * * * * * * * * * * * * * * * * * * * * This laboratory routinely screens urine cultures for any amount of Group B Streptococcus in reproductive age women. Recovery of this isolate may be significant in women, however, the recovery of this organism in small quantities in non- women represents contamination with periurethral neftali. (.) Comment:Testing performed by : [facility], [address] [place]., [address] Organism (CLINICALLY INSIGNIFICANT GROWTH [facility] Organism STREPTOCOCCUS AGALACTIAE (GROUP B STREPTOCOCCI) [facility] Urine, clean voided 04/21/2025 4:06 PM CDT 04/21/2025 9:43 PM CDT Narrative [facility] - 04/23/2025 8:17 AM CDT Testing performed by [facility] Microbiology Laboratory ([phone]) Dana Reyes MD LAB MICROBIOLOGY - GENERAL [place] [address] [address] Department [place] [address] * (ABNORMAL) POCT urinalysis dipstick (04/21/2025 11:03 AM CDT) Color, Urine, POC Yellow Clarity, ur, POC Cloudy(A) Clear Glucose, ur, POC Negative Negative Bilirubin, ur, POC Negative Negative Ketones, ur, POC Negative Negative Specific Fox, POC 1.015 1.003 - 1.030 Blood, ur, POC Trace(A) Negative pH, ur, POC 7.0 5.0 - 8.0 Protein, ur, POC Negative Negative Urobilinogen, urine, POC 0.2 0.2 - 1.0 mg/dL Nitrite, ur, POC Negative Negative Leukocytes, ur, POC Small(A) Negative Lot Number [id number] Urine 04/21/2025 11:0 3 AM CDT Dana Reyes MD POINT OF CARE TEST ORDERAB LES Final Result * (ABNORMAL) POCT urinalysis dipstick (03/31/2025 10:52 AM CDT) Color, Urine, POC Yellow Clarity, ur, POC Cloudy(A) Clear Glucose, ur, POC Negative Negative Bilirubin, ur, POC Negative Negative Ketones, ur, POC Negative Negative Specific Fox, POC 1.015 1.003 - 1.030 Blood, ur, POC Moderate(A) Negative pH, ur, POC 7.0 5.0 - 8.0 Protein, ur, POC Negative Negative Urobilinogen, urine, POC 0.2 0.2 - 1.0 mg/dL Nitrite, ur, POC Positive(A) Negative Leukocytes, ur, POC Small(A) Negative Lot Number [id number] Urine 03/31/2025 10:5 2 AM CDT Dana Reyes MD POINT OF CARE TEST ORDERAB LES Final Result * N. gonorrhoeae/C. trachomatis Amplification Urine (03/31/2025 8:00 AM CDT) C. trachomatis Not Detected [facility] Comment:Testing performed by : [facility], [address] [place] [address]., [id number] N. gonorrhoeae Not Detected JAYNA LANG Comment: Interpretive Data This assay detects Chlamydia trachomatis and Neisseria gonorrhoeae by nucleic acid amplification testing (NAAT). This assay has been cleared by the [facility] Food and Drug administration. The performance characteristics of this test have been verified by the [facility] Molecular Infectious Disease laboratory. The performance characteristics of this test have not been evaluated in individuals less than 14 years of age. Current Interpretive Data was last revised on 2023. Testing performed by: [facility], [address] [place] [address]., [id number] Urine (None) 03/31/2025 8:00 AM CDT 03/31/2025 4:19 PM CDT Dana Reyes MD LAB MICROBIOLOGY - GENERAL ORDERABLES Final Result [address] [address] [address] Department of Laboratories [place], [place] [id number] [facility] * Trichomonas vaginalis PCR Urine (03/31/2025 8:00 AM CDT) Trichomonas DNA Not Detected [facility] Comment: Interpretive Data This assay detects Trichomonas vaginalis by nucleic acid amplification testing (NAAT). This assay has been cleared by the [place] Food and Drug administration. The performance characteristics of this test have been verified by the [facility] Molecular Infectious Disease laboratory. The performance of this test has not been evaluated in individuals less than 18 years of age. Current Interpretive Data was last revised on 2023. Testing performed by: [facility], [address] [place] [address]., [id number] Urine 03/31/2025 8:00 AM CDT 03/31/2025 4:19 PM CDT Dana Reyes MD LAB MICROBIOLOGY - GENERAL ORDERABLES Final Result Performing Organization Address [facility] Co de Phone Number JAYNA LANG [address] [address] [employer] [place], [place] [phone] [facility] * Hepatitis C antibody Blood (11/03/2024 4:06 PM CDT) Hep C Ab Nonreactive Nonreactive Comment: Interpretive Data Nonreactive: Antibodies to HCV not detected. Does NOT exclude the possibility of recent exposure to HCV. Equivocal: Equivocal for HCV antibodies. Supplemental molecular testing will be automatically performed to determine infection status in accordance with current CDC screening recommendations. Reactive: Positive for HCV antibodies. This may represent current or past HCV infection. Supplemental molecular testing will be automatically performed to determine current infection status in accordance with current CDC screening recommendations. Interpretive data was last revised on 2019. Blood 11/03/2024 4:06 PM CDT 11/03/2024 6:26 PM CDT Dana Reyes MD LAB MICROBIOLOGY - GENERAL ORDERABLES Final Result Performing Organization Address [facility] Co de Phone Number JAYNA LANG [id number] [address] [place] [address] * Pap Only (Cytology Component) (11/03/2024 8:52 AM CDT) Thin prep (Pap test) 11/03/2024 8:52 AM CDT 11/03/2024 8:52 AM CDT Narrative PATHOLOGY - 11/07/2024 10:13 AM CDT [facility] Department of Pathology [address] [place] [id number] Final Report Note to Patients: This report may contain a detailed description of human tissue sent by a health care provider to the laboratory for pathologic evaluation. The content of this report is essential for diagnosis and may provide important critical findings. This information may be unfamiliar to patients to review without a medical professional present. It is advised that the patient review this report in the presence of a health care provider who can answer questions and explain the details. Patient Name: CHE DAVIES Address: [address] [place] [address] Gender: F : 2000 (Age: 24) Service: Location: [facility] #: [id number] Patient Type: SPECIMEN Taken: 11/03/2024 Received: 11/03/2024 Accessioned:: 11/04/2024 Reported: 11/07/2024 Physician(s): Cris Ahmadi M.D. 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 CYTOLOGIC MATERIAL: STATEMENT OF ADEQUACY - Satisfactory for evaluation; endocervical/transformation zone component present GENERAL CATEGORIZATION: - Negative for intraepithelial lesion or malignancy DOMINIC Beltran(ASCP)DOMINIC Rodriguez(ASCP) Report Electronically Reviewed and Signed Out By CINTHIA RodriguezASCP) 11/07/2024 10:13:02Specimen(s) Received: A: IMAGED THINPREP PAP TEST - BARREL ASSEMBLER CYTOLOGIC MATERIAL Clinical History: Menstrual History: Previous Abnormal Pap: 2023 ASCUS Contraceptive History: Oral Contraceptives The Pap test is a screening test used to aid in the detection of cervical cancer and its precursors. It should not be the sole means by which malignant and premalignant lesions are diagnosed. Both false negative and false positive results may occur. It also has poor sensitivity for the detection of endometrial lesions and should not be used to evaluate suspected endometrial abnormalities. For these reasons it is most important to obtain Pap tests at regular intervals. The performance characteristics of some immunohistochemical stains, fluorescence in-situ hybridization tests and immunophenotyping by flow cytometry cited in this report (if any) were determined by the Surgical Pathology Department at [facility] as part of an ongoing senior quality manager program and in compliance with federally mandated regulations drawn from the Clinical Laboratory Improvement Act of 1988 (CLIA '88). Some of these tests rely on the use of analyte specific reagents and are subject to specific labeling requirements by the [place] Food and Drug Administration. Such diagnostic tests may only be performed in a facility that is certified by the Department of Health and Human Services as a high complexity laboratory under CLIA '88. The FDA has determined that such clearance or approval is not necessary. This test is used for clinical purposes. It should not be regarded as investigational or for research. Nevertheless, federal rules concerning the medical use of analyte specific reagents require that the following disclaimer be attached to the report: This test was developed and its performance characteristics determined by the Surgical Pathology Department [facility]. It has not been cleared or approved by the [place]. S. Food and Drug Administration. Dana Reyes MD LAB CYTOLOGY [place] [address] [place] [address] from Last 3 Months or Most Recently Relevant to Health Maintenance Insurance [employer] MEDICARE PPO IDPA Care Teams Wax Pumper Relationship Specialty Start Date End Date Rahel Ashby MD [address] [facility] [address] [place] [address] PCP - General Internal Medicine 05/25/25 [place] [id number] [facility] [address] [place] [address] Consulting Physician Nephrology 05/25/25 Christian Sexton MD [address] [place] [address] Referring Physician Psychiatry 05/25/25
--- OUTSIDE RECORDS SUMMARY | 2025-06-10 10:52 | XMS_ITS | Clinical Summary ---
Author Organization [facility] Address [address] [address] Care Team Providers Care Ghost Writer Name Role Phone Marcelino Urrutia MD Unavailable [phone] Keshia Viramontes Primary Care Provider [phone] Source Comments [facility],non-owned Affiliates and Associated Physician Practices is amultiple site organization consisting of ambulatory clinics and hospital sitesin [place], [place] and [place]. This disclosure is being madepursuant to the Care Everywhere program and may not contain all information available regarding this patient. Last updated 18.[facility] Allergies No known active allergies Medications * Be aware that medications may not be up to date on this document. Alwaysverify current medications with the patient. hydrocortisone (HYTONE) 2.5 % ointment Apply to affected area 2 times daily Apply sparingly to affected areas 20 g 6 Active Additional Information Patient not taking.Reported on 06/18/2017 Abilify Maintena 300 MG injection 4 Active semaglutide (Rybelsus) 3 MG tablet Take 3 mg by mouth once daily Take with a sip of water (< 4 oz) at least 30 minutes before any food, drink, or other meds. Active drospirenone-et hinyl estradiol (Deepa) 3-0.02 MG tablet Take 1 (one) tablet by mouth once daily 3 packet 4 4 Active Active Problems No known active problems Immunizations Immunization Administration Dates Next Due DTaP VACCINE IM (6wk-6yrs) 01/08/2004,,1998, 9,1998 HEP A PEDS 2 DOSE 10/02/2011,04/05/2010 HEP B VACCINE, PED/ADOL 02/10/1999,1998, HIB BOOSTER 12/09/1999, 9,1998, 8 MENINGOCOCCAL ACWY (MCV4P) VAC IM 09/24/2014, MMR 01/08/2004,05/20/1999 POLIO IPV 01/08/2004, 0,1998, 8 TDAP (7yrs+) 04/05/2010 VARICELLA 04/05/2010,08/29/1999 Social History Tobacco Use Types Packs/Day Years Used Date Smoking Tobacco: Never Smokeless Tobacco: Never Tobacco Cessation:Counseling Given: Not Answered Alcohol Use Standard Drinks/Week Comments Yes 0 (1 standard drink = 0.6 oz pur e alcohol) Comments No Sex and Gender Information Value Date Recorded Sex Assigned at Not on file Legal Sex Female 6:47 AM VALVER Gender Identity Not on file Sexual Orientation Not on file Last Filed Vital Signs Vital Sign Reading Time Taken Comments Blood Pressure 134/68 10/30/2023 4:02 PM CDT Pulse 101 10/30/2023 4:02 PM CDT Temperature 37.1 C (98.8 F) 08/23/2018 11:27 AM VALVER Respiratory Rate - - Oxygen Saturation - - Inhaled Oxygen Concentration - - Weight 91.2 kg (201 lb) 10/30/2023 4:02 PM CDT Height 162.6 cm (5' 4) 10/30/2023 4:02 PM CDT Body Mass Index 34.5 10/30/2023 4:02 PM CDT Plan of Treatment Health Maintenance Due Date Last Done Comments HIV SCREENING 2013 HEPATITIS C SCREENING 05/02/2016 DTAP/TDAP/TD VACCINES (7 - Td or Tdap) 04/05/2020 04/05/2010, 01/08/2004, 12/09/1999, Additional history exists DEPRESSION SCREENING 07/30/2024 MEDICARE AWV CALENDAR YEAR 2024 COVID-19 VACCINE (2 - season) 2025 06/14/2023 INFLUENZA VACCINE (#1) 2025 05/29/2023, 2021 HPV VACCINE (1 - 3-dose SCDM series) 2025 PAP SMEAR 10/29/2026 10/30/2023 ZOSTER VACCINE (1 of 2) 2048 HEPATITIS B VACCINE Completed 02/10/1999, 1998, 1998 HIB VACCINE Completed 12/09/1999, 10/28, 1998, Additional history exists MENINGOCOCCAL GROUPS A/C/Y/W VACCINE Completed 09/24/2014, 03/11/2013 MENINGOCOCCAL (Group B) VACCINE SHARED DECISION-MAKING Aged Out No longer eligible based on patient's age to complete this topic PNEUMOCOCCAL VACCINE Aged Out No long er eligible based on patient's age to complete this topic Goals Goal Patient Goal Type Associated Problems Recent Progress Patient-Stated? Author SSEsequiel Lifestyle: Use safety retraint in car Lifestyle On track( 017 2:56 PM VALVER) No Candy Clifton RN Note: NEW CAR SEAT SAFETY RULES Infants and toddlers should ride facing the rear of the vehicle until at least 2 years of age. Young children should ride in car safety seats with a 5 point harness until at least age 4. School-aged children should ride in belt positioning high back booster seats until at least age 8 or 80 lb until the seat belt fits correctly, as described by the AAP and NHTSA. Children should ride in the rear-seat until age 13. Seat belt laws should apply to all vehicle occupants Procedures Procedure Name Priority Date/Time Associated Diagnosis Comments PAP IG LB CT+NG+TV RFLX HPV ASCU Routine 10/30/2023 4:25 PM CDT Well woman exam with routine gynecological exam Screening examination for venereal disease from Last 3 Months or Most Recently Relevant to Health Maintenance Results * (ABNORMAL) PAP IG LB CT+NG+TV RFLX HPV ASCU (10/30/2023 4:25 PM CDT) Diagnosis (A) [facility] ACCOUNT BILL Comment: EPITHELIAL CELL ABNORMALITY. ATYPICAL SQUAMOUS CELLS OF UNDETERMINED SIGNIFICANCE (ASC-US). Recommendation (A) [facility] ACCOUNT BILL Comment:Suggest follow up as clinically appropriate. Specimen Adequacy [facility] ACCOUNT BILL Comment:Satisfactory for jesus harden. No endocervical component is identified. Clinician Provided ICD10 [facility] ACCOUNT BILL Comment: Z01.419 Z11.3 Performed by [facility] ACCOUNT BILL Comment:Naseem Patton, [place] (ASCP) Electronically Signed by [facility] ACCOUNT BILL Comment:Sridevi Burks MD, Pathologist Comment . [facility] ACCOUNT BILL Pathologist Provided ICD10 [facility] ACCOUNT BILL Comment:R87.610 Note [facility] ACCOUNT BILL Comment: The Pap smear is a screening test designed to aid in the detection of premalignant and malignant conditions of the uterine cervix. It is not a diagnostic procedure and should not be used as the sole means of detecting cervical cancer. Both false-positive and false-negative reports do occur. . IGLBP CPT Code Automation [facility] ACCOUNT BILL Comment: This liquid based ThinPrep(R) pap test was screened with the use of an image guided system. Note [facility] ACCOUNT BILL Comment: See below for HPV testing results. . Chlamydia trachomatis CELESTINO Negative Negative [facility] ACCOUNT BILL GC CELESTINO Negative Negative [facility] ACCOUNT BILL Trichomonas vaginalis by CELESTINO Negative Negative [facility] ACCOUNT BILL PART OF UTERINE CERVIX / Unknown 10/30/2023 4:25 PM CDT 10/31/2023 Narrative [facility] ACCOUNT BILL - 11/06/2023 11:07 PM CDT Source.............Cervix;Endocervix LMP / Prev Treat...UGO=[id number] No. of containers..01 ThinPrep Vial Resulting Agency Comment Lab Testing performed at: [address] [id number] Marcelino Urrutia MD LAB - PATHOLOGY/CYTOLOGY OR DERABLES Final Result [facility] ACCOUNT BILL [id number] [place] [phone] from Last 3 Months or Most Recently Relevant to Health Maintenance Insurance MEDICARE MEDICAID - OUT OF STATE [facility] MEDICARE ADV HMO & PPO * Guarantor: CHE DAVIES Account Type Relation to Patient Date of Phone Billing Address Personal/Family [address] [place] [address] Care Teams Ghost Writer Relationship Specialty Start Date End Date Keshia Viramontes [address] [place] [phone] PCP - General 06/02/24 [place] [id number] [address] Obstetrics and Gynecology 10/30/23
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
--- OUTSIDE RECORDS SUMMARY | 2025-06-10 10:52 | XMS_ITS | Clinical Summary ---
Author Organization [facility] Address [address] [place] [address] Care Team Providers Care Theatre Manager Name Role Phone None, Provider MD Primary Care Provider Unavaila ble Allergies No known active allergies Medications fluconazole (DIFLUCAN) 150 MG tablet fluconazole 150 mg tablet Active hydrocortisone 2.5 % cream hydrocortisone 2.5 % topical cream Active nystatin (MYCOSTATIN) cream nystatin 100,000 unit/gram topical cream Active triamcinolone (KENALOG) 0.1 % cream triamcinolone acetonide 0.1 % topical cream Active Social History Tobacco Use Types Packs/Day Years Used Date Smoking Tobacco: Every Day Cigarettes Alcohol Use Standard Drinks/Week Comments Yes 0 (1 standard drink = 0.6 oz pur e alcohol) rare Comments Unknown Sex and Gender Information Value Date Recorded Sex Assigned at Not on file Legal Sex Female 7:10 PM CDT Gender Identity Not on file Sexual Orientation Not on file Last Filed Vital Signs Vital Sign Reading Time Taken Comments Blood Pressure 123/73 04/14/2022 5:35 PM CDT Pulse 98 04/14/2022 5:35 PM CDT Temperature 36.4 C (97.5 F) 04/14/2022 5:35 PM CDT Respiratory Rate 16 04/14/2022 5:35 PM CDT Oxygen Saturation 100% 04/14/2022 5:35 PM CDT Inhaled Oxygen Concentration - - Weight 77.1 kg (170 lb) 04/12/2022 7:24 PM CDT Height 162.6 cm (5' 4) 04/12/2022 7:24 PM CDT Body Mass Index 29.18 04/12/2022 7:24 PM CDT Plan of Treatment Health Maintenance Due Date Last Done Comments Cervical Cancer Screening Pap Smear (Age 21 to 29) Every 3 Years 1998 Cervical Cancer Screening 1998 Annual Physical 2001 Hepatitis C 2016 Pneumococcal Vaccine: Pediatrics (0 to 5 Years) and At-Risk Patients (6 to 49 Years) (1 of 2 - PCV) 2017 COVID-19 Vaccine (1 - season) 2025 Influenza Adult (#1) 2025 HPV Vaccines (1 - 3-dose SCDM series) 2025 DTaP, Tdap and Td Vaccines (8 - Td or Tdap) 09/29/2031 09/28/2021, 04/05/2010, 01/08/2004, Additional history exists Hepatitis B Vaccines Completed 02/10/1999, 1998, 1998 Hepatitis A Vaccines Completed 10/02/2011, 04/05/20 10 Meningococcal Vaccine Completed 09/24/2014, 013 Meningococcal B Vaccine Aged Out No l onger eligible based on patient's age to complete this topic RSV Immunizations Under 20 Months Aged Out No longer eligible based on patient's age to complete this topic Insurance MEDICAID MEDICARE Care Teams Theatre Manager Relationship Specialty Start Date End Date None, Provider, PCP - General 04/12/22
--- OUTSIDE RECORDS SUMMARY | 2025-06-10 10:52 | XMS_ITS | Clinical Summary ---
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 Gender Identity Not on file Sexual Orientation Not on file Plan of Treatment Health Maintenance Due Date Last Done Comments Hepatitis C Virus (HCV) Screening 1998 TdaP Immunization 1998 Human Papillomavirus (HPV) Immunization (1 - 3-dose series) 2013 Hepatitis B Immunization (1 of 3 - 19+ 3-dose series) 2017 Influenza Immunization (#1) 2025 SARS-COV-2 Immunization ( - season) 2025 Respiratory Syncytial Virus (RSV) Immunization (Adult) (1 - 1-dose 75+ series) 2073 Meningococcal Immunization (ACWY) Completed 09/24/2014, 03/11/2013 Pneumococcal Immunization Combined Aged Out No longer eligible b ased on patient's age to complete this topic Rotavirus Immunization Aged Out No lo nger eligible based on patient's age to complete this topic Insurance [employer] on file
--- OUTSIDE RECORDS SUMMARY | 2025-06-10 10:52 | XMS_ITS | Patient Health Record ---
Author Organization [facility] Address [address] [facility] [address] [facility] [address] [place] [address] Care Team Providers Care Hot Saw Helper Name Role Phone Francisco Hill Unavailable [phone] Reason For Referral No Information Medications Medication SIG (Take, Route, Frequency, Duration) Notes Start Date End Date Status Calcitriol 0.25 MCG 1 capsule Orally Onc e a day; Duration: 90 days 01/08/2025 01/03/2026 Active Ergocalciferol 1.25 MG (63872 UT) 1 capsule Orally Once a week; Duration: 90 days 01/08/2025 01/03/2026 Active Problems Problem Type SNOMED Code ICD Code Onset Dates Problem Status W/U Status Risk Notes Problem Obesity (508027622) Obesity, unspecified (E66.9) Active confirmed Problem Psychotic disorder (52212980) 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) Active confirmed Problem Fatty liver (417158452) Fatty (change of) liver, not elsewhere classified (K76.0) Active confirmed Problem Chronic kidney disease stage 1 (040194460) Chronic kidney disease, stage 1 (N18.1) Active confirmed Problem 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 Problem Elevation of levels of liver transaminase levels (R74.01) Active confirmed Encounters Encounter Location Date Provider Diagnosis [facility] [address] [facility] [address] [place] [address] 12/19/2024 Hill Singh Chronic kidney disease, stage 1 N18.1 ; Atrophy of kidney (terminal) N26.1 ; Elevation of levels of liver transaminase levels R74.01 ; Unspecified psychosis not due to a substance or known physiological condition F29 and Obesity, unspecified E66.9 [facility] [address] [address] 01/07/2025 Hill Singh Chronic kidney disease, stage 1 N18.1 ; Atrophy of kidney (terminal) N26.1 ; Elevation of levels of liver transaminase levels R74.01 ; Unspecified psychosis not due to a substance or known physiological condition F29 ; Obesity, unspecified E66.9 ; Fatty (change of) liver, not elsewhere classified K76.0 and Edema, unspecified R60.9 [facility] [address] [address] 03/18/2025 Hill Singh Chronic kidney disease, stage 1 N18.1 ; Atrophy of kidney (terminal) N26.1 ; Elevation of levels of liver transaminase levels R74.01 ; Unspecified psychosis not due to a substance or known physiological condition F29 ; Obesity, unspecified E66.9 and Fatty (change of) liver, not elsewhere classified K76.0 [facility] [address] [address] 01/08/2025 Hill Singh Assessments Encounter Date Diagnosis (ICD Code) Assessment Notes Treatment Notes Treatment Clinical Notes Section Notes 12/19/2024 Chronic kidney disease, stage 1 (ICD-10 - N18.1) 01/07/2025 Chronic kidney disease, stage 1 (ICD-10 - N18.1) 01/07/2025 Atrophy of kidney (terminal) (ICD-10 - N26.1) 03/18/2025 Chronic kidney disease, stage 1 (ICD-10 - N18.1) 03/18/2025 Atrophy of kidney (terminal) (ICD-10 - N26.1) 01/07/2025 Elevation of levels of liver transaminase levels (ICD-10 - R74.01) 12/19/2024 Atrophy of kidney (terminal) (ICD-10 - N26.1) 12/19/2024 Elevation of levels of liver transaminase levels (ICD-10 - R74.01) 01/07/2025 Unspecified psychosis not due to a substance or known physiological condition (ICD-10 - F29) 03/18/2025 Elevation of levels of liver transaminase levels (ICD-10 - R74.01) 03/18/2025 Unspecified psychosis not due to a substance or known physiological condition (ICD-10 - F29) 12/19/2024 Unspecified psychosis not due to a substance or known physiological condition (ICD-10 - F29) 01/07/2025 Obesity, unspecified (ICD-10 - E66.9) 12/19/2024 Obesity, unspecified (ICD-10 - E66.9) 01/07/2025 Fatty (change of) liver, not elsewhere classified (ICD-10 - K76.0) 03/18/2025 Obesity, unspecified (ICD-10 - E66.9) 01/07/2025 Edema, unspecified (ICD-10 - R60.9) 03/18/2025 Fatty (change of) liver, not elsewhere classified (ICD-10 - K76.0) Plan Of Treatment Next Appt Details Provider Name:Hill Singh , 06/17/2025 04:00:00 PM, [address] [facility], [facility] [address], [place], [address],
--- OUTSIDE RECORDS SUMMARY | 2025-06-10 10:52 | XMS_ITS | Data Portability ---
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 Complications Tubal Sterilization Discharge Date Comments 2 None Regional-Ep idural 41 false Adelina AlexisM late pnc Discharge Information Feeding Method Contraceptive Method Maternal HG B and HCT Levels
[2025-06-10 12:06] LABS: BEDSIDEPREGUCG Negative (Negative)
[2025-06-10 12:12] LABS: Hematocrit 40.2 % (37.0-47.0); Hemoglobin 13.1 g/dL (12.0-15.0); Immature Granulocyte Percent A 0.5 % (0-0.5); Lymphocytes Absolute Auto 3.50 K/mm3 (0.9-3.2); Mean Corpuscular HGB Conc 32.6 g/dl (32-36); Mean Corpuscular Hemoglobin 29.9 pg (26-34); Mean Corpuscular Volume 91.8 fl (80-100); Nucleated Red Blood Cells Absolute Auto 0.000 K/mm3 (0.0-0.012); Nucleated Red Blood Cells Perc 0.0 % (0.0-0.2); Platelet Count Result 288 k/mm3 (150-375); Red Blood Count 4.38 M/mm3 (4.2-5.4); White Blood Count 10.9 K/mm3 (4.5-10.0)
[2025-06-10 12:32] LABS: Alanine Aminotransferase 34 U/L (6-35); Albumin Level 4.4 g/dL (3.5-5.1); Alkaline Phosphatase 150 U/L (38-126); Anion Gap 9 mmol/L (4-12); Aspartate Amino Transferase 46 U/L (14-36); Bilirubin,Total 0.4 mg/dL (0.2-1.3); Blood Urea Nitrogen 11 mg/dL (7-17); Calcium 9.3 mg/dL (8.4-10.2); Carbon Dioxide 26 mmol/L (22-30); Chloride 103 mmol/L (98-107); Estimated CRCL calculation 103 ml/min; Estimated Glomerular Filt Rate > 60; Glucose 91 mg/dL (65-110); Potassium 3.6 mmol/L (3.4-5.0); Sodium 138 mmol/L (137-145); Total Protein 8.6 g/dL (6.3-8.2)
--- NOTE | 2025-06-10 12:33 | ED.GENADULT ---
HPI - General Adult General Chief complaint: Vaginal Bleeding Stated complaint: excessive menstrual bleeding Time Seen by Provider: 06/10/25 11:59 History of Present Illness HPI narrative: 25-year-old female presented emergency department for evaluation for persistent vaginal bleeding that has been ongoing since May 28. Patient denies any associated abdominal pain. Patient denies any pain with urination. Patient states she has been attempting to seek follow-up with OB Gyne but has not had any call back. Pain did try to have follow-up with primary care physician and was referred to the emergency department. Related Data Home Medications ?Medication ?Instructions ?Recorded ?Confirmed ?Last Taken ?Type hydroxyzine HCl 25 mg tablet 25 mg PO TID 11/21/23 06/10/25 06/10/25 History calcitriol 0.25 mcg capsule mcg 06/10/25 06/10/25 History duloxetine 30 mg capsule,delayed 30 mg PO DAILY 06/10/25 06/10/25 06/10/25 History release ergocalciferol (vitamin D2) 1,250 06/10/25 06/05/25 History mcg (50,000 unit) capsule Allergies Allergy/AdvReac Type Severity Reaction Status Date / Time No Known Allergies Allergy Verified 06/10/25 12:04 Review of Systems Review of Systems: All systems reviewed & are unremarkable except as noted in HPI and below PMFSH Past Medical History Medical History (Updated 06/10/25 @ 13:53 by Jarvis Norton MD) Weight loss counseling, encounter for Obesity Iron deficiency anemia Low iron Screening for thyroid disorder Screening for cholesterol level control counseling Annual physical exam Obesity (BMI 30-39.9) Surgical History Surgical History No history of previous surgery Family History Family History Other Breast cancer Social History Social History (Updated 05/09/24 @ 13:29 by Eduardo Sterling) Social History: 05/09/24 Patient declined SDOH Alcohol intake: never Substance use: never Lack of Transportation: No Lack of Food: Never True Current Housing: I Have Housing Concerned About Future Housing: No Difficulty Paying Gas/Electric Bills: No Difficulty Paying for Meds: No Currently Unemployed: No Education: High School Diploma/GED Difficulty w/ Childcare or Family Care: No Living arrangements: with family Occupation/Education: occupation Additional occupation/education comments: Resident Aid at [employer] Gender identity (if verbalized by the patient): Female Spiritual care concerns: No Agree to blood products: Yes Exam Narrative: APPEARANCE: Well appearing, no pain, no distress, well-nourished. HEAD: normocephalic, atraumatic. EYES: PERRLA/EOMI, conjunctivae clear. NOSE: Normal no drainage EARS:TMS clear with good light reflex. THROAT: Pharynx clear, no exudate. NECK: Supple. No adenopathy, no masses. RESPIRATORY: Airway patent, respirations nonlabored. Clear to auscultation bilaterally, no rales, rhonchi, wheezing. CARDIOVASCULAR: Regular rate and rhythm without murmurs rubs or gallops. ABDOMINAL: Soft, nontender, nondistended, normal bowel sounds MUSCULOSKELETAL: Moves all extremities. Strength/ROM intact, No edema, No calf tenderness. NEURO: Alert. Cranial nerves II through XII intact. Good gait. Good coordination SKIN: Warm, dry. Normal Color Genital exam: Small amount of vaginal bleeding with no vaginal laceration, normal appearing cervix, no active hemorrhage Course Vital Signs Vital signs: Vital Signs Temperature 98.2 F 06/10/25 10:03 Pulse Rate 95 06/10/25 10:03 Respiratory Rate 18 06/10/25 10:03 Blood Pressure 148/84 H 06/10/25 10:03 Pulse Oximetry 99 06/10/25 10:03 Temperature 98.2 F 06/10/25 10:03 Pulse Rate 95 06/10/25 10:03 Respiratory Rate 18 06/10/25 10:03 Blood Pressure 148/84 H 06/10/25 10:03 Pulse Oximetry 99 06/10/25 10:03 Medical Decision Making [facility] Narrative Medical decision making narrative: 25-year-old female present to the emergency department for evaluation for vaginal bleeding. Patient is afebrile but does have a leukocytosis of 10.9 and and a hemoglobin of 13.1. Patient's platelet count is 288. UA shows no evidence infection but does have some hematuria bleed this is contamination from vaginal bleeding. Patient states she had not previously noticed any urinary bleeding and has no urinary symptoms. patient was updated results of her workup. Patient was encouraged of close follow-up with her primary care physician. Differential Diagnosis Differential Diagnosis: dysfunctional vaginal bleeding. Vital Signs Vital Signs: Vital Signs Temperature 98.2 F 06/10/25 10:03 Pulse Rate 95 06/10/25 10:03 Respiratory Rate 18 06/10/25 10:03 Blood Pressure 148/84 H 06/10/25 10:03 Pulse Oximetry 99 06/10/25 10:03 Temperature 98.2 F 06/10/25 10:03 Pulse Rate 95 06/10/25 10:03 Respiratory Rate 18 06/10/25 10:03 Blood Pressure 148/84 H 06/10/25 10:03 Pulse Oximetry 99 06/10/25 10:03 Lab Data Lab results reviewed: Yes I reviewed the patient's lab results. 06/10/25 12:05 06/10/25 12:05 Labs: Lab Results 06/10/25 06/10/25 06/10/25 Range/Units 12:00 12:05 12:55 WBC 10.9 H (4.5-10.0) K/mm3 RBC 4.38 (4.2-5.4) M/mm3 Hgb 13.1 D (12.0-15.0) g/dL Hct 40.2 (37.0-47.0) % MCV 91.8 (80-100) fl MCH 29.9 (26-34) pg MCHC 32.6 (32-36) g/dl RDW 13.6 (11.5-14.5) % Plt Count 288 (150-375) k/mm3 MPV 9.1 (7.4-10.4) fl Immature Gran % (Auto) 0.5 (0-0.5) % Neut % (Auto) 60.2 (45.5-73.1) % Lymph % (Auto) 32.0 (18.3-44.2) % [place] % (Auto) 5.8 (2.6-8.5) % Eos % (Auto) 1.0 (0-4.4) % Baso % (Auto) 0.5 (0.2-1.2) % Lymph # (Auto) 3.50 H (0.9-3.2) K/mm3 [place] # (Auto) 0.6 (0.1-0.6) K/mm3 Eos # (Auto) 0.1 (0-0.3) K/mm3 Baso # (Auto) 0.1 (0.0-0.1) K/mm3 Abs Immat Gran (auto) 0.06 H (0.00-0.031) K/mm3 Absolute Neuts (auto) 6.6 (1.3-6.7) K/mm3 Absolute Nucleated RBC 0.000 (0.0-0.012) K/mm3 Nucleated RBC % 0.0 (0.0-0.2) % PT 13.3 (11.1-14.7) Seconds INR 1.0 APTT 25.0 (22.3-36.8) Seconds Sodium 138 (137-145) mmol/L Potassium 3.6 (3.4-5.0) mmol/L Chloride 103 (98-107) mmol/L Carbon Dioxide 26 (22-30) mmol/L Anion Gap 9 (4-12) mmol/L BUN 11 D (7-17) mg/dL Creatinine 0.80 (0.7-1.0) mg/dL Estim Creat Clear Calc 103 ml/min Estimated GFR > 60 (59 - ) Glucose 91 (65-110) mg/dL Calcium 9.3 (8.4-10.2) mg/dL Total Bilirubin 0.4 (0.2-1.3) mg/dL AST 46 H (14-36) U/L ALT 34 (6-35) U/L Alkaline Phosphatase 150 H (38-126) U/L Total Protein 8.6 H (6.3-8.2) g/dL Albumin 4.4 (3.5-5.1) g/dL Urine Color Red H (Yellow) Urine Appearance Turbid H (Clear) Urine pH 6.5 (5.0-9.0) Ur Specific [place] 1.015 (1.001-1.035) Urine Protein Trace (Negative) mg/dL Urine Glucose (UA) Negative (Negative) mg/dL Urine Ketones Negative (Negative) mg/dL Ur Blood (Man) 3+ H (Negative) Urine Nitrate Negative (Negative) Urine Bilirubin Negative (Negative) Urine Urobilinogen 0.2 (<2.0) mg/dL Leukocyte Esterase Rfl Negative (Negative) JAYDA/UL Urine RBC 51-100 H (0-2) /hpf Urine WBC 0-3 (0-3) /hpf Ur Squamous Epith Cells None seen (Few) /hpf Urine Bacteria 1+ H (None) /hpf POC Urine HCG, Qual Negative (Negative) Blood Type A Positive Antibody Screen Negative Discharge Plan Discharge Clinical Impression: Abnormal vaginal bleeding Patient Disposition: Home Condition: Stable Instructions: Antibiotic Form, Abnormal (Dysfunctional) Uterine Bleeding (ED) Additional Instructions: Drink plenty of fluids. Have close follow-up with your primary care physician and with OB Gyne. Patient Language: Mongolian Prescriptions: No Action hydroxyzine HCl 25 mg tablet 25 mg PO TID duloxetine 30 mg capsule,delayed release(DR/EC) 30 mg PO DAILY ergocalciferol (vitamin D2) 1,250 mcg (50,000 unit) capsule calcitriol 0.25 mcg capsule Follow-up/Referrals: Isma,MD Jazmine [Primary Care Provider, Unknown]
[2025-06-10 12:40] LABS: INR 1.0; Prothrombin Time 13.3 Seconds (11.1-14.7)
[2025-06-10 12:41] LABS: Partial Thromboplastin Time 25.0 Seconds (22.3-36.8)
--- OUTSIDE RECORDS SUMMARY | 2025-06-10 13:35 | XMS_ITS | Clinical Summary ---
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
--- OUTSIDE RECORDS SUMMARY | 2025-06-10 13:35 | XMS_ITS | Clinical Summary ---
Author Organization [facility] Address [address] [place] [address] Care Team Providers Care Bmx Rider Name Role Phone Hill Singh MD Unavailable [phone] Christian Sexton MD Unavailable [phone] Rahel Ashby MD Primary Care Provide r [...] calcitRIOL (ROCALTROL) 0.25 mcg capsule Active delmi kyeqfv-Gs-wljB rangpeel-tea (Apple Cider Vinegar Plus) [phone] mh-cbt-la-mg tablet Take by oral route. Active multivitamin-C c-zlka-xyzeiwt s tablet Take by oral route. Active [...] Description 05/25/2025 2:00 PM CDT Office Visit [facility] at [address] Medical Office Building [address] [place] [phone] Dana Reyes MD Bladder spasm (Primary Dx); Secondary amenorrhea 04/23/2025 Orders Only [facility] at [address], [address] [facility] Medical Office Building [address] [place] [phone] Dana Reyes MD 04/21/2025 4:06 PM CDT - 04/21/2025 11:59 PM CDT Hospital Encounter [address] [address] UTI symptoms Discharge Disposition: Discharge to home or self care 04/21/2025 10:00 AM CDT Clinical Support [facility] at [address], [address] Medical Office [address] [place] [address] UTI symptoms (Primary Dx) 04/09/2025 10:00 AM CDT Clinical Support [facility] at [address], [address] Medical Office [address] [place] [address] Surveillance for Depo-Provera contraception (Primary Dx) 03/31/2025 11:12 AM CDT - 03/31/2025 11:59 PM CDT Hospital Encounter [address] [address] Screening for STD (sexually transmitted disease); Vaginal irritation Discharge Disposition: Discharge to home or self care 03/31/2025 10:45 AM CDT Clinical Support [facility] at [address], [address] Medical Office Building [address] [place] [address] UTI symptoms (Primary Dx); Vaginal irritation; Screening for STD (sexually transmitted disease) 03/31/2025 Orders Only [facility] at [address], [address] Medical Office Building [address] [place] [address] Dana Reyes MD UTI symptoms (Primary Dx) 03/31/2025 Telephone [facility] at [address] Medical Office Building [address] [place] [address] Dana Reyes MD from Last [...] on file 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 (.) Comment:Testing performed by : [facility], [address] [facility] [place] [address] Organism (CLINICALLY INSIGNIFICANT GROWTH [facility] Organism STREPTOCOCCUS AGALACTIAE (GROUP B STREPTOCOCCI) [facility] Urine, clean voided 04/21/2025 4:06 PM CDT 04/21/2025 9:43 PM CDT Narrative [facility] - 04/23/2025 8:17 AM CDT Testing performed by [facility] Microbiology Laboratory ([phone]) Dana Reyes MD LAB MICROBIOLOGY - [place]AL [place] [address] [address] Department [place] [address] * (ABNORMAL) POCT urinalysis dipstick (04/21/2025 11:03 AM CDT) Color, Urine, POC Yellow Clarity, ur, POC Cloudy(A) Clear Glucose, ur, POC Negative Negative Bilirubin, ur, POC Negative Negative Ketones, ur, POC Negative Negative Specific [place], POC 1.015 1.003 - 1.030 Blood, ur, POC Trace(A) Negative pH, ur, POC 7.0 5.0 - 8.0 Protein, ur, POC Negative Negative Urobilinogen, urine, POC 0.2 0.2 - 1.0 mg/dL Nitrite, ur, POC Negative Negative Leukocytes, ur, POC Small(A) Negative Lot Number [id number] Urine 04/21/2025 11:0 3 AM CDT Dana Reyes MD POINT OF CARE TEST ORDERAB LES Final Result * (ABNORMAL) POCT urinalysis dipstick (03/31/2025 10:52 AM CDT) Color, Urine, POC Yellow Clarity, ur, POC Cloudy(A) Clear Glucose, ur, POC Negative Negative Bilirubin, ur, POC Negative Negative Ketones, ur, POC Negative Negative Specific [place], POC 1.015 1.003 - 1.030 Blood, ur, [...] 8:00 AM CDT) C. trachomatis Not Detected [facility] Comment:Testing performed by : [facility], [address] [place] [address]., [address] N. gonorrhoeae Not Detected JAYNA LANG Comment: Interpretive Data This assay detects Chlamydia trachomatis and Neisseria gonorrhoeae by nucleic acid amplification testing (NAAT). This assay has been cleared by the [facility] Food and Drug administration. The performance characteristics of this test have been verified by the [facility] Molecular Infectious Disease laboratory. The performance characteristics of this test have not been evaluated in individuals less than 14 years of age. Current Interpretive Data was last revised on 2023. Testing performed by: [facility], [address] [place] [address]., [address] Urine (None) 03/31/2025 8:00 AM CDT 03/31/2025 4:19 PM CDT Dana Reyes MD LAB MICROBIOLOGY - GENERAL ORDERABLES Final Result [place] [address] [address] Department of Laboratories [place], [place] [id number] [facility] * Trichomonas vaginalis PCR Urine (03/31/2025 8:00 AM CDT) Trichomonas DNA Not Detected [facility] Comment: Interpretive Data This assay detects Trichomonas vaginalis by nucleic acid amplification testing (NAAT). This assay has been cleared by the [place] Food and Drug administration. The performance characteristics of this test have been verified by the [facility] Molecular Infectious Disease laboratory. The performance of this test has not been evaluated in individuals less than 18 years of age. Current Interpretive Data was last revised on 2023. Testing performed by: [facility], [address] [place] [address]., [address] Urine 03/31/2025 8:00 AM CDT 03/31/2025 4:19 PM CDT Dana Reyes MD LAB MICROBIOLOGY - GENERAL ORDERABLES Final Result Performing Organization Address [facility] Co de Phone Number JAYNA LANG [address] [address] [employer] [place], [place] [phone] BJ * Hepatitis C antibody Blood (11/03/2024 [...] GENERAL ORDERABLES Final Result Performing Organization Address [facility] Co de Phone Number JAYNA LANG [address] [address] Department [place] [address] * Pap Only (Cytology Component) (11/03/2024 8:52 AM CDT) Thin prep (Pap test) 11/03/2024 8:52 AM CDT 11/03/2024 8:52 AM CDT Narrative PATHOLOGY - 11/07/2024 10:13 AM CDT [facility] Department of Pathology [address] [place] [address] Final Report Note to Patients: This [...] the details. Patient Name: CHE DAVIES Address: [address] [place] [address] Gender: F : 2000 (Age: 24) Service: Location: [facility] #: [id number] Patient Type: SPECIMEN Taken: 11/03/2024 Received: 11/03/2024 Accessioned:: 11/04/2024 Reported: 11/07/2024 Physician(s): Cris Ahmadi M.D. Diagnosis: SOURCE OF SPECIMEN IMAGED THINPREP PAP TEST - HOD CARRIER CYTOLOGIC MATERIAL: STATEMENT OF ADEQUACY - Satisfactory for evaluation; endocervical/transformation zone component present GENERAL CATEGORIZATION: - Negative for intraepithelial lesion or malignancy DOMINIC Beltran(ASCP)DOMINIC Rodriguez(ASCP) Report Electronically Reviewed and Signed Out By CINTHIA RodriguezASCP) 11/07/2024 10:13:02Specimen(s) Received: A: IMAGED THINPREP PAP TEST - HOD CARRIER CYTOLOGIC MATERIAL Clinical History: Menstrual History: Previous [...] determined by the Surgical Pathology Department at [facility] as part of an ongoing quality management nurse program and in compliance with federally mandated [...] characteristics determined by the Surgical Pathology Department [facility]. It has not been cleared or approved by the [place]. [place]. Food and Drug Administration. Dana Reyes MD LAB [place]OLOGY [place] [address] [place] [address] from Last 3 Months or Most Recently Relevant to Health Maintenance Insurance [employer] CHOICE MEDICARE PPO IDPA Care Teams Bmx Rider Relationship Specialty Start Date End Date Rahel Ashby MD [address] [facility] [address] [place] [address] PCP - General Internal Medicine 05/25/25 [place] [id number] [facility] [address] [place] [address] Consulting Physician Nephrology 05/25/25 Christian Sexton MD [address] [place] [address] Referring Physician Psychiatry 05/25/25
--- OUTSIDE RECORDS SUMMARY | 2025-06-10 13:35 | XMS_ITS | Clinical Summary ---
Author Organization [facility] [employer] Address [address] [place] [address] Care Team Providers Care Physician Assistant Certified Name Role Phone Marcelino Urrutia MD Unavailable Keshia Viramontes Primary Care Provider [phone] Source Comments [facility],non-owned Affiliates and Associated Physician Practices is amultiple site organization consisting of ambulatory clinics and hospital sitesin [place], [place], [place]. This disclosure is being madepursuant to the Care Everywhere program and may not contain all information available regarding this patient. 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Cervix;Endocervix LMP / Prev Treat...RNO=[id number] No. of containers..01 ThinPrep Vial Resulting Agency Comment Lab Testing performed at: [address] [id number] Marcelino Urrutia MD LAB - PATHOLOGY/CYTOLOGY OR DERABLES Final Result [facility] ACCOUNT BILL [address] [place] [address] from Last 3 Months or Most Recently Relevant to Health Maintenance Insurance MEDICARE MEDICAID - OUT OF STATE [facility] MEDICARE ADV HMO & PPO * Guarantor: CHE DAVIES Account Type Relation to Patient Date of Phone Billing Address Personal/Family 2000 [address] [place] [address] Care Teams Physician Assistant Certified Relationship Specialty Start Date End Date Keshia Viramontes [address] [place] [phone] PCP - General 06/02/24 [place] [id number] [address] Obstetrics and Gynecology 10/30/23
--- OUTSIDE RECORDS SUMMARY | 2025-06-10 13:35 | XMS_ITS | Clinical Summary ---
Author Organization [facility] Address [address] [place] [address] Care Team Providers Care Drafter Apprentice Name Role Phone None, Provider MD Primary [...] this topic Insurance MEDICAID MEDICARE Care Teams Drafter Apprentice Relationship Specialty Start Date End Date None, Provider, PCP - General 04/12/22
--- OUTSIDE RECORDS SUMMARY | 2025-06-10 13:35 | XMS_ITS | Data Portability ---
Author Organization [place] [employer], Main Office Address [address] [place] [address] Assessment Encounter Date Assessment Date Assessment LastModified by Organization Details LastModified Time 02/18/2025 02/18/2025 12/30/2024: Hepatitis panel/GGT: Neg Not available 02/16/2025 12:53:51 03/05/2025 03/05/2025 12/30/2024: Hepatitis panel/GGT: Neg 03/02/2025: LDL 100 HGB 12.5 Not available 03/05/2025 11:21:54 03/26/2025 03/26/2025 Time spent with patient included: preparing to see patient by reviewing tests, obtaining and reviewing history, medical examination and evaluation, counseling and educating the patient, ordering medications and tests, documenting clinical information in EHR, independently interpreting results and communicating results to the patient for a total of 37 minutes. Not available 03/26/2025 11:40:07 04/27/2025 04/27/2025 Time spent with patient included: preparing to see patient by reviewing tests, obtaining and reviewing history, medical examination and evaluation, counseling and educating the patient, ordering medications and tests, documenting clinical information in EHR, independently interpreting results and communicating results to the patient for a total of 24 minutes. Not available 04/27/2025 15:51:21 Plan of Treatment Reminders Order Date Submit Date Provider Last Modified By Organization Details Last Modified Time Details Appointments Follow Up 15 2024 02:00P M Jazmine jiménez MD Not available Not available Not available Lab vitamin D, 25-hydrox y, total, serum [address] - Outpatient Lab, [address] [place], [address], 03/05/2025 11:37:14 lipid panel, serum [address] Outpatient Lab, [address] [place], [address], 03/05/2025 11:37:15 CMP, serum or plasma [address] - Outpatient Lab, [address] [place], [address], 03/05/2025 11:37:15 CBC w/ auto diff [address] Outpatient Lab, [address] [place], [address], 03/05/2025 11:37:15 TSH + free T4, serum [address] Outpatient Lab, [address] [place], [address], 03/05/2025 11:37:15 vitamin B12 + folate, serum or blood [address] Outpatient Lab, [address] [place], [address], 03/05/2025 11:37:14 lipid panel, serum 2024 025 [facility] Outpatient Lab, [address] [place], [address], 03/02/2025 13:53:40 CMP, serum or plasma [address] [place] [address] Outpatient Lab, [address] [place], [address], 03/02/2025 13:53:50 CBC w/ auto diff [address] [place] [address] Outpatient Lab, [address] [place], [address], 03/02/2025 12:21:11 TSH + free T4, serum 2024 025 [facility] Outpatient Lab, [address] [place], [address], 02/18/2025 10:26:26 vitamin D, 25-hydrox y, total, serum 2024 025 [facility] Outpatient Lab, [address] [place], [address], 02/18/2025 10:26:26 vitamin B12 + folate, serum or blood 2024 025 [facility] Outpatient Lab, [address] [place], [address], 02/18/2025 10:26:26 lipid panel, serum 2024 025 [facility] Outpatient Lab, [address] [place], [address], 12/24/2024 15:15:22 CMP, serum or plasma 2024 025 [facility] Outpatient Lab, [address] [place], [address], 12/24/2024 15:15:22 CBC w/ auto diff 2024 025 [facility] Outpatient Lab, [address] [place], [address], 12/24/2024 15:15:22 TSH + free T4, serum 2024 025 [facility] Outpatient Lab, [address] [place], [address], 12/24/2024 15:15:22 vitamin D, 25-hydrox y, total, serum 2024 025 [facility] - Outpatient Lab, [address] [place], [address], 12/24/2024 15:15:22 gamma-glu tamyl transfera se (ggt), serum 2024 025 [facility] Outpatient Lab, [address] [place], [address], 12/30/2024 11:23:12 hepatitis panel (A+B+C), acute, serum 2024 025 [facility] Outpatient Lab, [address] [place], [address], 12/30/2024 12:25:57 vitamin B12 + folate, serum or blood 2024 025 [facility] Outpatient Lab, [address] [place], [address], 12/24/2024 15:15:22 Referral obstetric trever and gynecolog ist referral - Please call patient to schedule an appointme nt. Thank you. 2024 025 [place], [address] [facility], [address], [place], [address], 06/07/2025 04:06:54 pulmonolo gist referral - Please call patient to schedule an appointme nt. Thank you. 2024 025 Lisandra Nuno NP, [address] [facility], [facility] [address], [place], [address], 03/13/2025 15:49:32 Procedures None recorded. Surgeries None recorded. Imaging home sleep study - Please call patient to schedule. 2024 025 [facility], [address] [place], [address], 04/16/2025 15:44:18 Medication Orders Zepbound 2.5 mg/0.5 mL subcutane ous pen injector 2024 025 [email or web address] [facility] #[id number], [address], [place], [place], [id number], 02/26/2025 10:05:57 Rybelsus 3 mg tablet 2024 025 ADRIA [facility] #[id number], [address], [place], [place], [id number], 12/24/2024 10:56:39 Patient TargetsNo targets recorded. Patient InstructionsNo instructions recorded. Reason for Referral [employer]er Referral for D isorder of respiratory system suspected Please call patient to schedule an appointment. Thank you. Referring Physician: Jazmine Ashby, Internal Medicine, Encounter Date: 03/05/2025 [employer]airer And Gynecologis t Referral for Well woman health examination Please call patient to schedule an appointment. Thank you. Referring Physician: Jazmine Ashby, Internal Medicine, Encounter Date: 03/05/2025 Results Created Date Observation Date Name Description Value Unit Range Abnormal Flag Note LastModifiedBy Organization Detail LastModifiedTime 12/06/1912/05/2024 US, abdom en, limit ed [facility] [address] [place] [address] Patien t Name: CHE HUGHES Access ion #: [id number] Sex: F : 1999 8 Locati on: RAD Attend ing Physic trever: KISHA GARY Orderi ng Physic trever: KISHA GARY Exam Date: 12/06/19 7:55 AM Exam Name: US ABDOME N SINGLE ORGAN Admitt ing Diagno sis(es ): RADIOL OGY REPORT - FINAL EXAM: US ABDOME N SINGLE ORGAN HISTOR Y: elevat ed liver enzyme s 24-yea r-old female with elevat ed LFTs. COMPAR ZHANNA: None availa ble. TECHNI QUE: Right upper quadra nt ultras ound was perfor med. FINDIN GS: No gallst ones, gallbl adder wall thicke ozzy, or perich olecys tic free fluid. The patien t was not tender to transd ucer pressu re over the gallbl adder. No intrah epatic biliar y ductal dilata tion or liver mass. The liver measur es 16.1 cm longit udinal . There is hepato petal portal venous color Dopple r flow. The common duct measur es 3.6 mm in diamet er. The partia lly visual ized pancre as is unrema rkable . The intrah epatic portio n of the IVC is patent . No Page 1 of 2 [facility] Patien t Name: CHE HUGHES Access ion #: [id number] Sex: F : 1999 8 Exam Date: 12/06/19 7:55 AM Exam Name: US ABDOME N SINGLE ORGAN Admitt ing Diagno sis(es ): upper abdomi nal aortic ectasi a. The right kidney measur es 8.9 cm in length and demons trates diffus e mild renal cortic al atroph y. IMPRES ANGELY: 1. Mild right renal cortic al atroph y. 2. Otherw ise unrema rkable right upper quadra nt ultras ound. Create d and electr onical ly signed by: Jerrell tello MD Signed Date: 12/06/19 8:14 AM (CT) Dictat ed by: Jerrell tello MD (CT) (CT) Page 2 of 2 [facility] (Imaging) [address] [facility], [place], [address], 12/05/2024 09:17:09 01/01/20 25 12/31/2024 US, renal No observ ation record ed. [email or web address] [facility] [address], [place], [address], 04/15/2025 18:14:45 04/16/20 25 04/13/2025 home sleep study No observ ation record ed. [facility] [address] [place], [address], 04/24/2025 16:26:46 Result Notes None recorded. Problems Name Problem SNOMED Code Status Onset Date Resolution Date Notes Provider Name and Address Organization Details Recorded Time Schizophrenia 07907900 Active 2023 Keshia Viramontes APRN [address], [address], [place], [address], [employer] 4 12:20:17 Anxiety 91842937 Active 2023 Keshia Viraomntes APRN [address], [address], [place], [address], [employer] 4 12:20:36 Depressive disorder 11920515 Active 2024 Prashant Joseph MD [address], [address], [place], [address], [employer] 5 18:12:22 Vitamin D deficiency 86115867 Active 2024 Prashant Joseph MD [address], [address], [place], [address], [employer] 5 18:12:54 Obesity 609606689 Active 2024 Prashant Joseph MD [address], [address], [place], [address], [employer] 5 18:12:15 Anemia 953533120 Active 2024 Prashant Joseph MD [address], [address], [place], [address], [employer] 5 18:12:50 Hypersomnia 88420162 Active 2024 Lisandra Nuno NP [address], [address], [place], [address], [employer] 15:49:30 Problem Notes None recorded. Procedures Surgical History Date Name Laterality Status Provider Name and Address Organization Details Recorded Time Medicare Wellness CPT Code, subsequent completed Keshia Viramontes APRN [address], [address], [place], [address], [place] [employer] 09/01/2024 11:24:05 Meade Teeth completed Brooklynn Estrella MA [employer] [facility] [employer] 06/02/2024 12:13:19 Imaging Results None recorded. Procedure Notes None recorded. Medical Equipment None Reported. Allergies No known drug allergies Medications Name Sig Start Date Stop Date Status Note LastModified by Organization Details LastModified Time status covid-19/fl u a&b antigen tst TEST DIRECTED TODAY 06/02 completed Not Available Not Available Not Available miconazole nitrate 2 % vaginal cream INSERT 1 APPLICATO RFUL VAGINALLY EVERY NIGHT 06/02 completed Not Available Not Available Not Available Multiple Vitamins/Wo mens tablet Take by oral route. 04/15 completed Not Available Not Available Not Available metronidazo le 500 mg tablet TAKE 1 TABLET BY MOUTH TWICE DAILY UNTIL ALL TAKEN 06/02 completed Not Available Not Available Not Available Depo-Pharmacy Consultant a 150 mg/mL intramuscul ar suspension Inject 1 mL every 3 months by intramusc ular route. active Not Available Not Available No t Available fluoxetine 10 mg capsule TAKE 1 CAPSULE BY MOUTH ONCE A DAY 04/27 completed Not Available Not Available Not Available ergocalcife rol (vitamin D2) 1,250 mcg (50,000 unit) capsule TAKE 1 CAPSULE BY MOUTH 1 TIME A WEEK active Not Available Not Available No t Available fluoxetine 20 mg capsule TAKE 1 CAPSULE BY MOUTH DAILY 04/15 completed Not Available Not Available Not Available calcitriol 0.25 mcg capsule TAKE 1 CAPSULE BY MOUTH DAILY active Not Available Not Available No t Available phentermine 37.5 mg capsule TAKE 1 CAPSULE BY MOUTH DAILY 09/01 completed Not Available Not Available Not Available hydroxyzine pamoate 25 mg capsule TAKE 1 CAPSULE BY MOUTH TWICE DAILY NEEDED active Not Available Not Available No t Available aripiprazol e 10 mg tablet TAKE 1 TABLET BY MOUTH DAILY 06/02 completed Not Available Not Available Not Available Apple Cider Vinegar Plus 500 mg-100 mcg-300 mg-60 mg tablet Take by oral route. 12/24 completed Not Available Not Available Not Available duloxetine 30 mg capsule,del ayed release TAKE 1 CAPSULE BY MOUTH DAILY 04/27 completed Not Available Not Available Not Available duloxetine 60 mg capsule,del ayed release TAKE 1 CAPSULE BY MOUTH DAILY active Not Available Not Available No t Available apple cider vinegar 04/15 completed Not Available Not Available Not Available drospirenon e 3 mg-ethinyl estradiol 0.02 mg tablet TAKE 1 TABLET BY MOUTH EVERY DAY DIRECTED 12/24 completed Not Available Not Available Not Available lurasidone 40 mg tablet TAKE 1 TABLET BY MOUTH DAILY IN THE EVENING WITH FOOD active Not Available Not Available No t Available lurasidone 20 mg tablet TAKE 1 TABLET BY MOUTH DAILY IN THE EVENING WITH FOOD 02/18 completed Not Available Not Available Not Available Abilify Maintena 300 mg suspension, extended rel. intramuscul ar syringe INJECT 1 SYRINGE IN THE MUSCLE EVERY 4 WEEKS 02/18 completed Not Available Not Available Not Available Rybelsus 3 mg tablet TAKE 1 TABLET BY MOUTH DAILY ON AN EMPTY STOMACH WITH 4 OUNCES OF WATER. WAIT AT LEAST 30 MINUTES BEFORE FOOD OR BEVERAGES active Not Available Not Available No t Available Lybalvi 5 mg-10 mg tablet TAKE 1 TABLET BY MOUTH EVERY DAY AT BEDTIME 06/02 completed Not Available Not Available Not Available Zepbound 2.5 mg/0.5 mL subcutaneou s pen injector Inject 2.5 mg every week by subcutane ous route for 30 days. 02/26 completed Not Available Not Available Not Available Vitals Date Recorded Body height Body mass index (BMI) Body weight Body temperature Heart rate Oxygen saturation Oxygen saturation in Arterial blood by Pulse oximetry Pain severity - 0-10 verbal numeric rating [Score] - Reported Systolic And Diastolic Provider Name and Address Organization Details Last Updated DateTime 5 162.56 cm 36.7 kg/m2 57167.7 7 g 97.6 [degF] 83 /min 100 % 100 % 0 122/74 mm[Hg] Brooklynn Estrella MA [place] [employer] [facility] 5 09:50:32 Date Recorded Body height Body mass index (BMI) Body weight Body temperature Heart rate Oxygen saturation Oxygen saturation in Arterial blood by Pulse oximetry Pain severity - 0-10 verbal numeric rating [Score] - Reported Systolic And Diastolic Provider Name and Address Organization Details Last Updated DateTime 5 162.56 cm 36.2 kg/m2 40892.9 9 g 97.8 [degF] 76 /min 99 % 99 % 0 118/80 mm[Hg] Brooklynn Estrella MA [employer] 5 09:38:32 Date Recorded Body height Body mass index (BMI) Body weight Body temperature Heart rate Oxygen saturation Oxygen saturation in Arterial blood by Pulse oximetry Pain severity - 0-10 verbal numeric rating [Score] - Reported Systolic And Diastolic Provider Name and Address Organization Details Last Updated DateTime 5 162.56 cm 36.4 kg/m2 94373.5 8 g 97 [degF] 82 /min 98 % 98 % 0 120/70 mm[Hg] Brooklynn Estrella MA [employer] 5 11:01:53 Date Recorded Body height Body mass index (BMI) Body weight Body temperature Heart rate Oxygen saturation Oxygen saturation in Arterial blood by Pulse oximetry Systolic And Diastolic Provider Name and Address Organization Details Last Updated DateTime 5 162.56 cm 35.9 kg/m2 28716.8 1 g 98.6 [degF] 68 /min 97 % 97 % 122/74 mm[Hg] Cheyenne Sheth MA [employer] 5 11:28:35 Date Recorded Body height Body mass index (BMI) Body weight Body temperature Heart rate Oxygen saturation Oxygen saturation in Arterial blood by Pulse oximetry Systolic And Diastolic Provider Name and Address Organization Details Last Updated DateTime 5 162.56 cm 35.9 kg/m2 47329.8 1 g 97.6 [degF] 104 /min 98 % 98 % 122/76 mm[Hg] KRYSTINA Virk [employer] [facility] [employer] 5 15:36:54 Social History Question Answer Notes LastModified by Organizat ion Details LastModified Time Tobacco Smoking Status Current Every Day Smoker DAVID Muñoz [employer] [facility] [employer] 03/26/2025 11:25:44 What Is Your Level Of Caffeine Consumption? Heavy Information not available 06/02/2024 In The 14 Days Before Symptom Onset, Have You Had Close Contact With A Laboratory-confi rmed COVID-19 While That Case Was Ill? No Information not available 06/02/2024 In The 14 Days Before Symptom Onset, Have You Had Close Contact With A Person Who Is Under Investigation For COVID-19 While That Person Was Ill? No Information not available 06/02/2024 What Type Of Diet Are You Following? REGULAR Information not available 06/02/2024 Do You Have An Electrostatic Air Filter? No Information not available 03/26/2025 Have There Been Any Changes To Your Family Or Social Situation? No Information not available 06/02/2024 Do You Have A Humidifier? No Information not available 03/26/2025 Do You Use Insect Repellent Routinely? No Information not available 06/02/2024 Where Do You Live? SingleLevelHouse Information not available 06/02/2024 Are You Following A Low Salt Diet? No Information not available 06/02/2024 Do You Have Moisture Problems In Your Home? No Information not available 03/26/2025 What Was The Date Of Your Most Recent Tobacco Screening? 04/27/2025 [email or web address] Information not available 04/27/2025 How Many Children Do You Have? 1 Information not available 06/02/2024 Do You Have Any Pets? Yes Information not available 06/02/2024 What Is Your Relationship Status? Single Information not available 06/02/2024 Do You Use Your Seat Belt Or Car Seat Routinely? Yes Information not available 06/02/2024 Do You Have Smoke And Carbon Monoxide Detectors In Your Home? Yes Information not available 06/02/2024 At What Age Did You Start Smoking Tobacco? 19 Information not available 06/02/2024 Are You Passively Exposed To Smoke? No Information not available 06/02/2024 Are There Any Smokers In Your House? No Information not available 06/02/2024 How Much Tobacco Do You Smoke? 0.25 PPD Information not available 06/02/2024 Do You Use Sunscreen Routinely? Yes Information not available 06/02/2024 Have You Recently Traveled Abroad? No Information not available 06/02/2024 Do You Have Any Dietary Restrictions? Yes Information not available 06/02/2024 Sex: Unknown Functional Status Question Answer Note LastModified by Organizat ion Details LastModified Time Do you use any illicit or recreational drugs? No Information not available 06/02/2024 Do you or have you ever used any other forms of tobacco or nicotine? Yes Information not available 06/02/2024 What is your level of alcohol consumption? Occasional Information not available 06/02/2024 Are you currently employed? Yes Information not available 06/02/2024 Have you been exposed to chemicals or toxins? not that aware of Information not available 03/26/2025 What is your occupation? [employer] Information not available 06/02/2024 Do you or have you ever used e-cigarettes or vape? Former user of electronic cigarettes Information not available 06/02/2024 What is your exercise level? Moderate Information not available 06/02/2024 Mental Status Question Answer Note LastModified by Organization D etails LastModified Time Do you feel stressed (tense, restless, nervous, or anxious, or unable to sleep at night)? [id number] Information not available 06/02/2024 Family History Relationship Description Onset Age of this Age Resolved Age Notes LastModified by Organization Details LastModified Time Mother Scoliosis deformity of spine [email or web address] Not available 2023 12:07:26 Mother Obsessive-co mpulsive disorder [email or web address] Not available 2023 12:07:41 Medical History No medical history recorded. Gynecological History Statement/Question Response How many live births 1 Date of Last Pap Current Control Method Depo-Pharmacy Consultant a Date of LMP Obstetrics History GPAL:G 1 P 1 0 0 1 Type Value Multiple Births 0 Full Term 1 Induced 0 Spontaneous 0 Premature 0 Living 1 Ectopics 0 Total 1 Immunizations Vaccine Type Date Status Note Provider Nam e and Address Organization Details Recorded Time Influenza, MDCK, quadrivalent, PF 3 completed Keshia Viramontes APRN [address], [address], [place], [address], [facility] [employer] [facility] [employer] [facility] 06/02/2024 12:19:12 COVID-19, mRNA, LNP-S, PF, kalie-sucrose, 30 mcg/0.3 mL 4 completed Keshia Viramontes APRN [address], [address], [place], [address], [employer] [facility] [employer] 06/02/2024 12:19:12 COVID-19, mRNA, LNP-S, PF, 50 mcg/0.5 mL 3 completed Keshia Viramontes APRN [address], [address], [place], [address], [employer] [facility] [employer] 06/02/2024 12:19:12 Tdap 2 completed Keshia Viramontes APRN [address], [address], [place], [address], [employer] [facility] [employer] 06/02/2024 12:19:12 Tdap 2 completed Keshia Viramontes APRN [address], [address], [place], [address], [employer] [facility] [employer] 06/02/2024 12:19:13 Influenza, split virus, trivalent, PF 4 completed Keshia Viramontes APRN [address], [address], [place], [address], [employer] [facility] [employer] 06/02/2024 12:19:13 meningococcal MCV4P 5 irene Viramontes APRN [address], [address], [place], [address], [employer] [facility] [employer] 06/02/2024 12:19:13 meningococcal MCV4P 3 completed Keshia Viramontes APRN [address], [address], [place], [address], [facility] [employer] 06/02/2024 12:19:13 Influenza, split virus, quadrivalent, PF 2 completed Keshia Wander, ELECTRICAL ENGINEERING TECHNICIAN [address] [facility], [address], [place], [address], [facility] [employer] 06/02/2024 12:19:13 Past Encounters Encounter ID Performer Location Encounter Start Date Encounter Closed Date Diagnosis/Indication Diagnosis SNOMED-CT Code Diagnosis ICD10 Code Diagnosis IMO Codes Diagnosis Note [id number] Jazmine cedeño MD [facility] Internal Med [address] [facility] [address] [place] [address] 06/02/2024 11:43:57 06/02/2024 12:49:41 Diabetes mellitus screening 289258462 Z13.1 Hyperlipid emia screening 408144837 Z13.220 Screening for disorder 390519260 Z13.9 Thyroid di sorder screening 866451956 Z13.29 Hepatitis C screening 41 3989360 Z11.59 [id number] Jazmine cedeño MD [facility] Internal Med [address] [facility], [address] [place] [address] 09/01/2024 11:07:31 09/01/2024 12:45:09 Adult health examination 034016354 Z00.00 Screening for disorder 044616045 Z13.9 Uses oral contraception 2759265 Z79.3 [id number] Jazmine cedeño MD [facility] Primary Care [facility] [address] [facility] [address] [place] [address] 11/24/2024 09:43:11 11/24/2024 11:06:51 Screening - NAD 830980811 Z13.9 Get yearly flu shot, can do Tdap if not doneCan do COVID 19 booster WWE Get this of not done RTC in 1 month, do labs, ER if worse, she did verbalize her understand ing of the above Depressive disorder 7028 9007 F32.A On Abilify IM monthlyOn flouxetine 20mg dailyOn hydroxyzin e 25mg bid PRN Not suicidal or homicidalS ees Dr Weeks a second opinion will refer to Dr Sexton as she has seen him before for counsellin g Hyperlipid emia screening 057818539 Z13.220 Vitamin D deficiency 347 76647 E55.9 Serum ashlyn min B12 below reference range 306150369 R79.89 Gynecologi c examination 73165688 Z01.419 Liver enzy mes level above reference range 883870546 R74.01 As per her her AST was elevatedWa s told her Hep B/C were negativeGe t GGT and US liver [id number] Jazmine cedeño MD [facility] Primary Care [facility] [address] [facility] [place] [address] 12/24/2024 09:18:52 12/24/2024 11:00:11 Screening - NAD 403905709 Z13.9 Get yearly flu shot, can do Tdap if not doneCan do COVID 19 booster WWE: Sees Dr Reyes for her control shot every month RTC in 2 month, do labs, ER if worse, she did verbalize her understand ing of the above Depressive disorder 3548 9007 F32.A On Abilify IM monthlyOn flouxetine 20mg dailyOn hydroxyzin e 25mg bid PRNOn lurasidone 20mg dailyHas an apt with Dr Sexton today 12/24/2024 Not suicidal or homicidalS een Dr Weeks a second opinion will refer to Dr Sexton as she has seen him before for counsellin g Hyperlipid emia screening 465137487 Z13.220 Vitamin D deficiency 347 79477 E55.9 Serum ashlyn min B12 below reference range 652399499 R79.89 Liver enzy mes level above reference range 424249778 R74.01 As per her her AST was elevatedWa s told her Hep B/C were negativeGe t GGT and US liver US liver 12/05/2024 Body mass index 30+ - obesity [id number] E66.9 [id number] Very eager to start on GLP-1Does not want any injectable s No hx of MEN2, MCT, thyroid or parathyroi d complaints Get on RybelsusAd vised on how to take thisAdvise d to use as directedTa ke with water and supplement sDo not take if ! and notify if any surgical procedure planned [id number] Jazmine cedeño MD [facility] Arianne mcintyre [address] [facility] [address] [place] [address] 02/18/2025 09:27:39 02/18/2025 10:09:27 Screening - NAD [id number] Z13.9 Get yearly flu shot, can do Tdap if not doneCan do COVID 19 booster WWE: Sees Dr Reyes for her control shot every month RTC in 3 month, do labs, ER if worse, she did verbalize her understand ing of the above Depressive disorder 3548 9007 F32.A On Abilify IM monthlyOn flouxetine 20mg dailyOn hydroxyzin e 25mg bid PRNOn lurasidone 20mg dailyDr Carlie Not suicidal or homicidalS een Dr Mclain in the past Hyperlipid emia screening 698594299 Z13.220 Vitamin D deficiency 347 75568 E55.9 Serum ashlyn min B12 below reference range 150936100 R79.89 Liver enzy mes level above reference range 809499875 R74.01 US liver 12/05/2024 Hep pane/GGT: 12/30/2024 : Neg Body mass index 30+ - obesity 194090907 E66.9 2268110 Very eager to start on GLP-1Does not want any injectable s No hx of MEN2, MCT, thyroid or parathyroi d complaints Get on RybelsusAd vised on how to take thisAdvise d to use as directedTa ke with water and supplement sDo not take if ! and notify if any surgical procedure planned OV 02/18/2025 :Now wants to get on ZepboundNo t taking the RybelsusWi ll bring the pen to demonstrat e its useShe does see her OB [id number] Jazmine cedeño MD [facility] Internal Med [address] [facility] [address] [place] [address] 03/05/2025 10:52:09 03/05/2025 11:38:06 Screening - NAD [id number] Z13.9 Get yearly flu shot, can do Tdap if not doneCan do COVID 19 booster WWE: Sees Dr Reyes for her control shot every month RTC in 3 month, do labs, ER if worse, she did verbalize her understand ing of the above Depressive disorder 1194 7610 F32.A On Abilify IM monthlyOn flouxetine 20mg dailyOn hydroxyzin e 25mg bid PRNOn lurasidone 20mg dailyDr NigamState s that she is disabled from her psychiatry diagnosis Not suicidal or homicidalS een Dr Mclain in the past Vitamin D deficiency 347 95784 E55.9 Serum ashlyn min B12 below reference range 116392675 R79.89 Liver enzy mes level above reference range 363993287 R74.01 US liver 12/05/2024 Hep pane/GGT: 12/30/2024 : Neg Body mass index 30+ - obesity 862266693 E66.9 6076160 Very eager to start on GLP-1Does not want any injectable s No hx of MEN2, MCT, thyroid or parathyroi d complaints Get on RybelsusAd vised on how to take thisAdvise d to use as directedTa ke with water and supplement sDo not take if ! and notify if any surgical procedure planned OV 02/18/2025 :Now wants to get on ZepboundNo t taking the RybelsusWi ll bring the pen to demonstrat e its useShe does see her OB OV 03/05/2025 :Now on the RybelsusAd vised to hydrate and take supplement s Hyperlipidemia 59711377 E78.5 84239203 MildMore diet and exercise is neededRepe at the labs Anemia 593508781 D64.9 56271318 More iron in dietRepeat the labsNeeds to see her OB Well woman health examination 533224196 Z01.419 119618 Disorder o f respiratory system suspected 473251667 R29.818 58673450 Fatigue in daytimeGet referral to pulmonary [id number] Prashant Joseph MD [facility] Pulmonolo [facility] [address] [address] 03/26/2025 11:02:46 03/31/2025 08:45:29 Sleep apnea 94382450 G47.30 G47.33 [id number] Sleep study order todayESS-1 Discussed sleep hygeineAdv ised good sleep habits and patterns:- Set a goal for at least 7 to 8 hours of sleep time per day-Use the bed mainly for sleep and to go to bed only when tired. If unable to fall asleep after 30 minutes, patient should get out of bed but should not engage in any activity that requires sustained mental alertness. -Maintain a bedtime and wake-up time even on weekends or day off of work.-Avoi d excessive naps during the daytime. If a nap is necessary, limit to no more than 30 minutes.-M inimize enviroment al noise, bright lights, and extremitie s in bedroom temperatur es.-Avoid alcohol, caffeinate d beverages, and nicotine products for at least 6 hours prior to bedtime.-A void strenuous exercise and large meals for at least 4 hours prior to bedtime.-D iscussed reportable signs and symptoms of concernf/u after testing Body mass index 30+ - obesity 333910066 Z68.35 008786 Encourage healthy diet and exercise to improve weightdisc ussed weight effect on sleep and sleep apnea [id number] Prashant Joseph MD [facility] [address] [address] 04/27/2025 15:21:29 04/28/2025 16:40:56 Hypersomnia 81042329 G47.10 72016 Sleep study with AHI of 4, supine 5-she does not qualify for a CPAP at this time. She is being worked up for other causes to her fatigue. She is on medication s that could make her drowsy as well. She will discuss with her psychiatri st. F/u in one year if no improvemen t and can try to get in lab study. Obesity 475670836 E66.9 [id number] Encourage healthy diet and exercise to improve weight Health Concerns Section Related Observation LastModified by Organization Detai ls LastModified Time None Recorded Concern Status LastModified by Organization Details LastModified Time None Recorded Advance Directives Directive None Recorded Payers Insurance Date Sequence Insurance Name Policy Number Policy Mays Covered Member ID Mays Member ID Guarantor Name 04/25/2025 1 [employer] (MEDICARE REPLACEMENT/A DVANTAGE - PPO) Che Hughes [id number] Che Garcia Samson 05/27/2024 1 *SELF PAY* Garcia Torre Samson 04/25/2025 [place] [facility] [place] OF PUBLIC AID Che Hughes [id number] Che Garcia Samson 03/21/2025 1 [place] Che Hughes [id number] Che Garcia Samson Notes Date Note Type Note Provider Name and Address Organization Details Recorded Time 5 text/html OV 11/24/2024:Here to establish care Present Hx:Depression Here as she was told by her OB that her AST is elevated and wants to get tested for this, also frustrated by her current psychiatrist as he does not listen and has her on IM abilify, she is not suicidal or homicidal OV 12/24/2024: Here for f/u apt, is doing well today, no new labs Jazmine Ashby MD [address], [address], [place], [address], [employer] 12/24/2024 18:40:54 5 text/html OV 11/24/2024:Here to establish care Present Hx:Depression Here as she was told by her OB that her AST is elevated and wants to get tested for this, also frustrated by her current psychiatrist as he does not listen and has her on IM abilify, she is not suicidal or homicidal OV 12/24/2024: Here for f/u apt, is doing well today, no new labs OV 02/18/2025: Here for her f/u apt, feels well today, she is not taking the Reybelsus but states that she did lose 7 pounds, is now agreeing to take Zepbound Jazmine Ashby MD [address], [address], [place], [address], [employer] 02/18/2025 10:11:07 5 text/html OV 11/24/2024:Here to establish care Present Hx:Depression Here as she was told by her OB that her AST is elevated and wants to get tested for this, also frustrated by her current psychiatrist as he does not listen and has her on IM abilify, she is not suicidal or homicidal OV 12/24/2024: Here for f/u apt, is doing well today, no new labs OV 02/18/2025: Here for her f/u apt, feels well today, she is not taking the Reybelsus but states that she did lose 7 pounds, is now agreeing to take Zepbound OV 03/05/2025: Here for her f/u apt, she did do the labs, is doing very well today Jazmine Ashby MD [address], [employer], [place], [address], [facility] [employer] [facility] [employer] 03/05/2025 11:53:13 5 text/html Obstructive Sleep ApneaReported by PatientHPIFor associated symptoms, patient reportsnight sweats,daytime sleepiness, andmouth breathingbut reportsno morning dry mouth,no morning headache,no postnasal drip,no dysphagia,no awakening short of breath,no suddenly falling asleep during the day,no napping,no impaired work performance,no nasal congestion,no snoring,no gasping for air,no witnessed apnea,no hyponasal speech,no hyperactivity,normal concentration,no amnesia, andno irritability. For severity, patient reportsmild. For duration, patient [id number]. For context, patient reportsgastroesophageal reflux diseaseandsleep hours per night8.5. For aggravating factors, patient reportsnone. For alleviating factors, patient reportsnone.she does take some heavy psych medicationsinceased fatigue with weight gain Lisandra Nuno NP [address], [employer], [place], [address], [employer] [facility] [employer] 03/26/2025 11:42:23 5 text/html ROS as noted in the HPI Patient here today for follow-up for home sleep study. She notes fatigue and weight gain. She was sent for sleep study to rule out sleep apnea as a cause to her fatigue. Lisandra Nuno NP [address], [address], [place], [address], [place] [facility] 04/27/2025 15:52:08 OBGyn Episode No OBEpisode recorded.
[2025-06-10 13:42] LABS: Add Urine Microscopic? YES; Appearance Urine Turbid (Clear); Glucose Urine UA Negative (Negative); Specific Grav Ur 1.015 (1.001-1.035)
[2025-06-10 13:43] LABS: Leukocyte Esterase Ur Negative LEU/UL (Negative); Nitrate Urine Negative (Negative)
== END 2025-06-10 14:04 | disposition home or self-care (01) ==
PROVIDERS: Physician Assistant; Emergency Provider Emergency Medicine; PCP Internal Medicine
DX: N93.9 Abnormal uterine and vaginal bleeding, unspecified (principal); D50.9 Iron deficiency anemia, unspecified; E66.9 Obesity, unspecified; Z68.35 Body mass index [BMI] 35.0-35.9, adult
CPT/HCPCS: 36415; 80053; 81001; 81025; 85025; 85610; 85730; 86850; 86900; 86901; 99284